=== PATIENT | female | born 1990 | race Caucasian/White ===

== ENCOUNTER 2023-05-08 22:21 | Outpatient (REF) | payer BC, OTHER, SELFPAY ==
[2023-05-13 08:11] LABS: Age Gdln ACOG Testing Note (.); HPV Aptima Negative (Negative); IGP, Aptima HPV, rfx 16/18,45 Note (.)
== END 2023-05-08 22:22 | disposition home or self-care (01) ==
LOC: LAB 22:21
PROVIDERS: Visit Provider Physician Assistant
DX: Z01.419 Encounter for gynecological examination (general) (routine) without abnormal findings (principal)
CPT/HCPCS: 87624; G0145

== ENCOUNTER 2023-06-29 07:10 | Outpatient (OUT) | payer OTHER, SELFPAY ==
[2023-06-29 07:52] LABS: Alanine Aminotransferase 21 U/L (14-59); Albumin Globulin Ratio 1.2; Albumin Level 3.8 g/dL (3.4-5.0); Alkaline Phosphatase 53 U/L (46-116); Aspartate Amino Transferase 8 U/L (15-37); Bilirubin Direct 0.1 mg/dL (0.0-0.2); Bilirubin Total 0.5 mg/dL (0.2-1.0); Globulin 3.3 g/dL; Total Protein 7.1 g/dL (6.4-8.2)
--- OUTSIDE RECORDS SUMMARY | 2023-06-29 10:24 | XMS_ITS | CCD ---
Author Name Unknown Address [address] [place] [address] Organization [facility] Care Team Providers Care Chemical Economist Name Role Phone LOTTIE, DR RIGGS Attending Unavailable LOTTIE, DR RIGGS Consulting Unavailable JERSEY, DR JUAREZ Primary Care Unavailable LOTTIE, DR RIGGS Admitting Unavailable LOTTIE, DR RIGGS Attending Unavailable JERSEY, DR JUAREZ Primary Care Unavailable LOTTIE, DR RIGGS Consulting Unavailable LOTTIE, DR RIGGS Admitting Unavailable JERSEY, DR JUAREZ Primary Care Unavailable MISC, DR SANTOS Attending Unavailable MISC, DR SANTOS Consulting Unavailable MISC, DR SANTOS Admitting Unavailable RUIZ LESTER Attending Unavailable RUIZ LESTER Consulting Unavailable RUIZ LESTER Admitting Unavailable JERSEY, DR JUAREZ Primary Care Unavailable LOTTIE, DR RIGGS Attending Unavailable JERSEY, DR JUAREZ Primary Care Unavailable LOTTIE, DR RIGGS Admitting Unavailable JERSEY, DR JUAREZ Primary Care Unavailable MISC, DR SANTOS Admitting Unavailable MISC, DR SANTOS Attending Unavailable ATUL JACOB Primary Care Unavailable BELINDA CARD Referring Unavailable Allergies Allergy Classification Reported Allergen(s) Allergy Type Date of Onset Reaction(s) Facility (2 sources) Amoxicillin Drug Allergy 1990 [facility] (1 source) Penicillins Drug allergy (disorder) 12-04-2016 [facility] Problems Active Problems Problem Classification Problem Date Documented Date Episodic/Chronic Immunizations and screening for infectious disease (1 source) Encounter for screening for human papillomavirus (HPV); Translations: [ENC SCREENING HUMAN PAPILLOMAVIRUS] Onset: 04-29-2022 Episodic Nausea and vomiting (4 sources) Nausea with vomiting, unspecified; Translations: [NAUSEA WITH VOMITING UNSPECIFIED] Onset: 02-23-2022 Episodic Other screening for suspected conditions (not mental disorders or infectious disease) (4 sources) Encounter for screening for malignant neoplasm of cervix; Translations: [ENC SCREENING MALIG NEOPLASM CERV] Onset: 04-27-2022 Episodic Thyroid disorders (2 sources) Thyrotoxicosis, unspecified without thyrotoxic crisis or storm; Translations: [Thyrotoxicosis, unspecified without thyrotoxic crisis or storm] Onset: 02-16-2023 Chronic Unclassified (3 sources) CONTACT W/AND (SUSP) EXPOS COVID-19; Translations: [CONTACT W/AND (SUSP) EXPOS COVID-19] Onset: 07-29-2021 Past or Other Problems Problem Classification Problem Date Documented Da te Episodic/Chronic Other nutritional; endocrine; and metabolic disorders (4 sources) Abnormal weight loss; Translations: [ABNORMAL WEIGHT LOSS] Onset: 01-03-2022 Episodic Other upper respiratory infections (1 source) Acute upper respiratory infection, unspecified; Translations: [ACUTE UP RESPIRATORY INFECTION UNS] Onset: 07-29-2021 Episodic Unclassified (1 source) CONTACT W/AND (SUSP) EXPOS COVID-19; Translations: [CONTACT W/AND (SUSP) EXPOS COVID-19] Onset: 07-28-2021 Results Test Name Value Interpretation Reference Range Facility Ferritinon 02-17-2023 Ferritin [Mass/Vol] 32 ng/mL Normal 13-150 [facility] Comment on above: Performed By: #### L IPR, GLYHGB, FT3, FERI, FT4 #### [facility] [address] [place] [address] [id number] International Trade Analyst: Alcon Farfan MD #### CDP, TSH #### [facility] [address] [place] [address] International Trade Analyst: Chace Leon MD Hemoglobin A1Con 02-17-2023 Glucose [Mass/Vol] 100 mg/dL Normal [facility] Comment on above: Result Comment: The ADA and AACC recommend providing the estimated average glucose result to permit better patient understanding of their HBA1c result. Performed By: #### L IPR, GLYHGB, FT3, FERI, FT4 #### [facility] [place], [place] [phone] International Trade Analyst: Alcon Farfan MD #### CDP, TSH #### [facility] [address] [place], [place] [phone] International Trade Analyst: Chace Leon MD HbA1c (Bld) [Mass fraction] 5.1 % Normal 4.0-6.0 [facility] Comment on above: Performed By: #### L IPR, GLYHGB, FT3, FERI, FT4 #### [address] [address] International Trade Analyst: Alcon Farfan MD #### CDP, TSH #### [address] [place] [phone] International Trade Analyst: Chace Leon MD T3, Freeon 4 Free T3 [Mass/Vol] 2.90 pg/mL Normal 2.02-4.43 [facility] Comment on above: Performed By: #### L IPR, GLYHGB, FT3, FERI, FT4 #### [address] [address] International Trade Analyst: Alcon Farfan MD #### CDP, TSH #### [address] [place] [phone] International Trade Analyst: Chace Leon MD CBC with Diffon 0 Abs. Basophil 0.05 k/uL Normal 0.00-0.20 [facility] Comment on above: Performed By: #### L IPR, GLYHGB, FT3, FERI, FT4 #### [address] [phone] International Trade Analyst: Alcon Farfan MD #### CDP, TSH #### [address] [place] [address] International Trade Analyst: Chace Leon MD Abs.Imm.Granulocyte <0.03 Normal 0.00-0.30 [facility] Comment on above: Performed By: #### L IPR, GLYHGB, FT3, FERI, FT4 #### [address] [address] International Trade Analyst: Alcon Farfan MD #### CDP, TSH #### [address] [place] [address] International Trade Analyst: Chace Leon MD Abs.Neutrophil (Seg) 3.53 k/uL Normal 1.50-8.10 [facility] Comment on above: Performed By: #### L IPR, GLYHGB, FT3, FERI, FT4 #### [address] [address] International Trade Analyst: Alcon Farfan MD #### CDP, TSH #### [address] [place] [phone] International Trade Analyst: Chace Leon MD Basophils/100 WBC (Bld) 1 % Normal 0-2 [facility] Comment on above: Performed By: #### L IPR, GLYHGB, FT3, FERI, FT4 #### [address] [address] International Trade Analyst: Alcon Farfan MD #### CDP, TSH #### [address] [place] [phone] International Trade Analyst: Chace Leon MD Eosinophils (Bld) [#/Vol] 0.14 10*3/uL Normal 0.00-0.4 4 [facility] Comment on above: Performed By: #### L IPR, GLYHGB, FT3, FERI, FT4 #### [address] [address] International Trade Analyst: Alcon Farfan MD #### CDP, TSH #### [address] [place] [phone] International Trade Analyst: Chace Leon MD Eosinophils/100 WBC (Bld) 2 % Normal 1-4 [facility] Comment on above: Performed By: #### L IPR, GLYHGB, FT3, FERI, FT4 #### [address] [address] International Trade Analyst: Alcon Farfan MD #### CDP, TSH #### [address] [place] [phone] International Trade Analyst: Chace Leon MD Erythrocyte distribution width (RBC) [Ratio] 12.9 % Normal 11.8-14.4 [facility] Comment on above: Performed By: #### L IPR, GLYHGB, FT3, FERI, FT4 #### [address] [address] International Trade Analyst: Alcon Farfan MD #### CDP, TSH #### [address] [place] [phone] International Trade Analyst: Chace Leon MD Hematocrit (Bld) [Volume fraction] 44.7 % Normal 36.3-47.1 [facility] Comment on above: Performed By: #### L IPR, GLYHGB, FT3, FERI, FT4 #### [address] [phone] International Trade Analyst: Alcon Farfan MD #### CDP, TSH #### [address] [place] [phone] International Trade Analyst: Chace Leon MD Hemoglobin (Bld) [Mass/Vol] 14.6 g/dL Normal 11.9-15.1 [facility] Comment on above: Performed By: #### L IPR, GLYHGB, FT3, FERI, FT4 #### [address] [phone] International Trade Analyst: Alcon Farfan MD #### CDP, TSH #### [address] [place] [phone] International Trade Analyst: Chace Leon MD Immature granulocytes/100 WBC (Bld) 0 % Normal 0 [facility] Comment on above: Performed By: #### L IPR, GLYHGB, FT3, FERI, FT4 #### [address] [phone] International Trade Analyst: Alcon Farfan MD #### CDP, TSH #### [address] [place] [phone] International Trade Analyst: Chace Leon MD Lymphocytes (Bld) [#/Vol] 1.64 10*3/uL Normal 1.10-3.7 0 [facility] Comment on above: Performed By: #### L IPR, GLYHGB, FT3, FERI, FT4 #### [address] [phone] International Trade Analyst: Alcon Farfan MD #### CDP, TSH #### [address] [place] [phone] International Trade Analyst: Chace Leon MD Lymphocytes/100 WBC (Bld) 28 % Normal 24-43 [facility] Comment on above: Performed By: #### L IPR, GLYHGB, FT3, FERI, FT4 #### [address] [phone] International Trade Analyst: Aclon Farfan MD #### CDP, TSH #### [address] [place] [phone] International Trade Analyst: Chace Leon MD MCH (RBC) [Entitic mass] 29.3 pg Normal 25.2-33.5 [facility] Comment on above: Performed By: #### L IPR, GLYHGB, FT3, FERI, FT4 #### [address] [phone] International Trade Analyst: Alcon Farfan MD #### CDP, TSH #### [address] [place] [phone] International Trade Analyst: Chace Leon MD MCHC (RBC) [Mass/Vol] 32.7 g/dL Normal 28.4-34.8 [facility] Comment on above: Performed By: #### L IPR, GLYHGB, FT3, FERI, FT4 #### [address] [address] International Trade Analyst: Alcon Farfan MD #### CDP, TSH #### [address] [place] [phone] International Trade Analyst: Chace Leon MD MCV (RBC) [Entitic vol] 89.6 fL Normal 82.6-102.9 [facility] Comment on above: Performed By: #### L IPR, GLYHGB, FT3, FERI, FT4 #### [address] [address] International Trade Analyst: Alcon Farfan MD #### CDP, TSH #### [address] [place] [phone] International Trade Analyst: Chace Leon MD Monocytes (Bld) [#/Vol] 0.44 10*3/uL Normal 0.10-1.20 [facility] Comment on above: Performed By: #### L IPR, GLYHGB, FT3, FERI, FT4 #### [address] [phone] International Trade Analyst: Alcon Farfan MD #### CDP, TSH #### [address] [place] [phone] International Trade Analyst: Chace Leon MD Monocytes/100 WBC (Bld) 8 % Normal 3-12 [facility] Comment on above: Performed By: #### L IPR, GLYHGB, FT3, FERI, FT4 #### [address] [address] International Trade Analyst: Alcon Farfan MD #### CDP, TSH #### [address] [place], [place] [phone] International Trade Analyst: Chace Leon MD Neutrophil (Seg) 61 % Normal 36-65 [facility] Comment on above: Performed By: #### L IPR, GLYHGB, FT3, FERI, FT4 #### [address] [address] International Trade Analyst: Alcon Farfan MD #### CDP, TSH #### [address] [place] [phone] International Trade Analyst: Chace Leon MD NRBC Automated 0.0 per 100 WBC Normal 0.0 [facility] Comment on above: Performed By: #### L IPR, GLYHGB, FT3, FERI, FT4 #### [address] [address] International Trade Analyst: Alcon Farfan MD #### CDP, TSH #### [address] [place] [phone] International Trade Analyst: Chace Leon MD Platelet mean volume (Bld) [Entitic vol] 9.9 fL Normal 8.1-13.5 [facility] Comment on above: Performed By: #### L IPR, GLYHGB, FT3, FERI, FT4 #### [address] [address] International Trade Analyst: Alcon Farfan MD #### CDP, TSH #### [address] [place] [address] International Trade Analyst: Chace Leon MD Platelets (Bld) [#/Vol] 287 10*3/uL Normal 138-453 [facility] Comment on above: Performed By: #### L IPR, GLYHGB, FT3, FERI, FT4 #### [address] [address] International Trade Analyst: Alcon Farfan MD #### CDP, TSH #### [address] [place], [place] [phone] International Trade Analyst: Chace Leon MD RBC (Bld) [#/Vol] 4.99 10*6/uL Normal 3.95-5.11 [facility] Comment on above: Performed By: #### L IPR, GLYHGB, FT3, FERI, FT4 #### [address] [address] International Trade Analyst: Alcon Farfan MD #### CDP, TSH #### [address] [place] [phone] International Trade Analyst: Chace Leon MD WBC (Bld) [#/Vol] 5.8 10*3/uL Normal 3.5-11.3 [facility] Comment on above: Performed By: #### L IPR, GLYHGB, FT3, FERI, FT4 #### [address] [address] International Trade Analyst: Alcon Farfan MD #### CDP, TSH #### [address] [place] [phone] ( International Trade Analyst: Chace Leon MD Lipid Profileon 02-16-2023 Cholesterol [Mass/Vol] 149 mg/dL Normal <200 [facility] Comment on above: Result Comment: Cholesterol Guidelines: <200 Desirable 200-240 Borderline >240 Undesirable Performed By: #### L IPR, GLYHGB, FT3, FERI, FT4 #### [address] [address] International Trade Analyst: Alcon Farfan MD #### CDP, TSH #### [facility] [address] [place], [place] [phone] International Trade Analyst: Chace Leon MD Cholesterol in HDL [Mass/Vol] 42 mg/dL Normal >40 [facility] Comment on above: Result Comment: HDL Guidelines: <40 Undesirable 40-59 Borderline >59 Desirable Performed By: #### L IPR, GLYHGB, FT3, FERI, FT4 #### [address] [phone] International Trade Analyst: Alcon Farfan MD #### CDP, TSH #### [facility] [address] [place] [address] International Trade Analyst: Chace Leon MD Cholesterol in LDL [Mass/Vol] 80 mg/dL Normal 0-130 [facility] Comment on above: Result Comment: LDL Guidelines: <100 Desirable 100-129 Near to/above Desirable 130-159 Borderline >159 Undesirable Direct (measured) LDL and calculated LDL are not interchangeable tests. Performed By: #### L IPR, GLYHGB, FT3, FERI, FT4 #### [address] [phone] International Trade Analyst: Alcon Farfan MD #### CDP, TSH #### [facility] [address] [place] [address] International Trade Analyst: Chace Leon MD Cholesterol.total/Choleste rol in HDL [Mass ratio] 3.5 {ratio} Normal <5 [facility] Comment on above: Performed By: #### L IPR, GLYHGB, FT3, FERI, FT4 #### [place] [id number] [place], [place] [phone] International Trade Analyst: Alcon Farfan MD #### CDP, TSH #### [facility] [address] [place] [address] International Trade Analyst: Chace Leon MD Triglyceride [Mass/Vol] 134 mg/dL Normal <150 [facility] Comment on above: Result Comment: Triglyceride Guidelines: <150 Desirable 150-199 Borderline 200-499 High >499 Very high Based on AHA Guidelines for fasting triglyceride, April 2012. Performed By: #### L IPR, GLYHGB, FT3, FERI, FT4 #### [address] [phone] International Trade Analyst: Alcon Farfan MD #### CDP, TSH #### [address] [place] [phone] International Trade Analyst: Chace Leon MD Thyroid Stim. Horm.on 2022 Thyroid Stim. Horm. 3.89 uIU/mL Normal 0.30-5.00 [facility] Comment on above: Performed By: #### L IPR, GLYHGB, FT3, FERI, FT4 #### [address] [address] International Trade Analyst: Alcon Farfan MD #### CDP, TSH #### [address] [place] [address] International Trade Analyst: Chace Leon MD Thyroxine, Freeon 02-16-2023 Thyroxine, Free 1.0 ng/dL Normal 0.9-1.7 [facility] Comment on above: Performed By: #### L IPR, GLYHGB, FT3, FERI, FT4 #### [address] [address] International Trade Analyst: Alcon Farfan MD #### CDP, TSH #### [address] [place] [address] International Trade Analyst: Chace Leon MD PAP ACOG PANEL 2: 30 to 65on 05-06-2022 . . Normal [facility] Comment on above: Result Comment: Perf ormed at: WB Performed By: #### [id number] #### [facility] [address] [place] [address] Dr. Edwin Conklin Age Gdln ACOG Testing 30-65 Normal [facility] Comment on above: Performed By: #### 4 [id number] #### [facility] [address] [place] [address] Dr. Edwin Conklin DIAGNOSIS: Comment Normal [facility] Comment on above: Result Comment: NEGA TIVE FOR INTRAEPITHELIAL LESION OR MALIGNANCY. Performed at: WB Performed By: #### 4 [id number] #### [facility] [address] [place] [address] Dr. Edwin Conklin HPV Aptima Positive Abnormal Negative [facility] Comment on above: Result Comment: This nucleic acid amplification test detects fourteen high-risk HPV types (16,18,31,33,35,39,45,51,52,56,58,59,66,68) without differentiation. Performed at: =G Performed By: #### 4 [id number] #### [facility] [address] [place] [address] Dr. Edwin Conklin HPV Genotype 16 Negative Normal Negative [facility] Comment on above: Result Comment: Perf ormed at: =G Performed By: #### 4 [id number] #### [facility] [address] [place] [address] Dr. Edwin Conklin HPV Genotype 18,45 Negative Normal Negative [facility] Comment on above: Result Comment: Perf ormed at: =G Performed By: #### 4 [id number] #### [facility] [address] [place] [address] Dr. Edwin Conklin Methodology: Comment Normal [facility] Comment on above: Result Comment: This liquid based ThinPrep(R) pap test was screened with the use of an image guided system. Performed at: WB Performed By: #### 4 [id number] #### [facility] [address] [place] [address] Dr. Edwin Conklin Note: Comment Normal [facility] Comment on above: Result Comment: The Pap smear is a screening test designed to aid in the detection of premalignant and malignant conditions of the uterine cervix. It is not a diagnostic procedure and should not be used as the sole means of detecting cervical cancer. Both false-positive and false-negative reports do occur. . Performed at: WB Performed By: #### [id number] #### [facility] [address] [place] [address] Dr. Edwin Conklin Performed by: Comment Normal [facility] Comment on above: Result Comment: Karissa Alexander, Jackscrew Worker Performed at: WB Performed By: #### 4 [id number] #### [facility] [address] [place] [address] Dr. Edwin Conklin Specimen adequacy: Comment Normal [facility] Comment on above: Result Comment: Sati sfactory for evaluation. Endocervical and/or squamous metaplastic cells (endocervical component) are present. Performed at: WB Performed By: #### 4 [id number] #### [facility] [address] [place] [address] Dr. Edwin Conklin CBC AUTO DIFFon 02-23-2022 BASO # 0.1 103/ul Normal 0.0-0.1 [facility] Comment on above: Performed By: #### C BC #### [facility] [address] [place] [address] Dr. Edwin Conklin Basophils/100 WBC (Bld) 0.3 % Normal 0.2-2.0 [facility] Comment on above: Performed By: #### C BC #### [facility] [address] [place] [address] Dr. Edwin Conklin EO # 0.1 103/ul Normal 0.0-0.7 [facility] Comment on above: Performed By: #### C BC #### [facility] [address] [place] [address] Dr. Edwin Conklin Eosinophils/100 WBC (Bld) 0.4 % Critically low 0.9-7. 0 [facility] Comment on above: Performed By: #### C BC #### [facility] [address] [place] [address] Dr. Edwin Conklin Erythrocyte distribution width (RBC) [Ratio] 13.2 % Normal 11.0-15.0 [facility] Comment on above: Performed By: #### C BC #### [facility] [address] [place] [address] [address] Edwin Conklin Hematocrit (Bld) [Volume fraction] 45.2 % Normal 36.0-48.0 [facility] Comment on above: Performed By: #### C BC #### [facility] [address] [place] [address] Dr. Edwin Conklin Hemoglobin (Bld) [Mass/Vol] 14.8 g/dL Normal 12.0-16.0 [facility] Comment on above: Performed By: #### C BC #### [facility] [address] [place] [address] Dr. Edwin Conklin IG # 0.11 10e3/ul Critically high 0.00-0.03 [facility] Comment on above: Performed By: #### C BC #### [facility] [address] [place] [address] Dr. Edwin Conklin IG % 0.5 % Normal 0.0-0.5 [facility] Comment on above: Performed By: #### C BC #### [facility] [address] [place] [address] Dr. Edwin Conklin LYMPH # 1.3 103/ul Normal 1.2-3.8 [facility] Comment on above: Performed By: #### C BC #### [facility] [address] [place] [address] Dr. Edwin Conklin Lymphocytes/100 WBC (Bld) 6.0 % Critically low 20.5-6 0.0 [facility] Comment on above: Performed By: #### C BC #### [facility] [address] [place] [address] Dr. Edwin Conklin MANUAL DIFF REQ NO Normal [facility] Comment on above: Performed By: #### C BC #### [facility] [address] [place] [address] Dr. Edwin Conklin MCH (RBC) [Entitic mass] 28.9 pg Normal 26.7-34.0 [facility] Comment on above: Performed By: #### C BC #### [facility] [address] [place] [address] Dr. Edwin Conklin MCHC (RBC) [Mass/Vol] 32.7 g/dL Normal 29.9-35.2 [facility] Comment on above: Performed By: #### C BC #### [facility] [address] [place] [address] Dr. Edwin Conklin MCV (RBC) [Entitic vol] 88.3 fL Normal 81.0-99.0 [facility] Comment on above: Performed By: #### C BC #### [facility] [address] [place] [address] [address] Edwin Conklin MONO # 1.1 103/ul Critically high 0.3-0.8 [facility] Comment on above: Performed By: #### C BC #### [facility] [address] [place] [address] Dr. Edwin Conklin Monocytes/100 WBC (Bld) 5.2 % Normal 1.7-12.0 [facility] Comment on above: Performed By: #### C BC #### [facility] [address] [place] [address] Dr. Edwin Conklin NEUT # 18.8 103/ul Critically high 1.4-6.5 [facility] Comment on above: Performed By: #### C BC #### [facility] [address] [place] [address] Dr. Edwin Conklin Neutrophils/100 WBC (Bld) 87.6 % Critically high 43.0- 75.0 [facility] Comment on above: Performed By: #### C BC #### [facility] [address] [place] [address] Dr. Edwin Conklin Platelet mean volume (Bld) [Entitic vol] 9.4 fL Critically low 9.5-13.5 [facility] Comment on above: Performed By: #### C BC #### [facility] [address] [place] [address] Dr. Edwin Conklin PLT 326 103/ul Normal 150-450 [facility] Comment on above: Performed By: #### C BC #### [facility] [address] [place] [address] Dr. Edwin Conklin RBC 5.12 106/ul Normal 4.20-5.40 [facility] Comment on above: Performed By: #### C BC #### [facility] [address] [place] [address] Dr. Edwin Conklin WBC 21.4 103/ul Critically high 4.0-11.0 [facility] Comment on above: Performed By: #### C BC #### [facility] [address] [place] [address] Dr. Edwin Conklin PREG HCG QUALon 02-23-2022 , QUAL Negative Normal NEGATIVE [facility] Comment on above: Performed By: #### P REG #### [facility] [address] [place] [address] Dr. Edwin Conklin PROF CHEM 8 (BAS METB)on Anion gap [Moles/Vol] 14.9 mmol/L Normal [facility] Comment on above: Performed By: #### B MP #### [facility] [address] [place] [address] Dr. Edwin Conklin Calcium [Mass/Vol] 8.5 mg/dL Normal 8.5-10.1 [facility] Comment on above: Performed By: #### B MP #### [facility] [address] [place] [address] Dr. Edwin Conklin Chloride [Moles/Vol] 102 mmol/L Normal 98-107 [facility] Comment on above: Performed By: #### B MP #### [facility] [address] [place] [address] Dr. Edwin Conklin CO2 [Moles/Vol] 23.8 mmol/L Normal 21.0-32.0 [facility] Comment on above: Performed By: #### B MP #### [facility] [address] [place] [address] Dr. Edwin Conklin Creatinine [Mass/Vol] 0.82 mg/dL Normal 0.55-1.02 [facility] Comment on above: Performed By: #### B MP #### [facility] [address] [place] [address] Dr. Edwin Conklin EGFR-AF [place] >60 Normal >=60 [facility] Comment on above: Performed By: #### B MP #### [facility] [address] [place] [address] [address] Edwin Conlkin EGFR-NON [employer] [place] >60 Normal >=60 [facility] Comment on above: Performed By: #### B MP #### [facility] [address] [address] [address] Edwin Conklin Glucose [Mass/Vol] 107 mg/dL Critically high 74-106 [facility] Comment on above: Performed By: #### B MP #### [facility] [address] [address] [address] Edwin Conklin Potassium [Moles/Vol] 3.7 mmol/L Normal 3.5-5.1 [facility] Comment on above: Performed By: #### B MP #### [facility] [address] [address] [address] Edwin Conklin Sodium [Moles/Vol] 137 mmol/L Normal 136-145 [facility] Comment on above: Performed By: #### B MP #### [facility] [address] [address] [address] Edwin Conklin Urea nitrogen [Mass/Vol] 18.0 mg/dL Normal 7.0-18.0 [facility] Comment on above: Performed By: #### B MP #### [facility] [address] [address] [address] Edwin Conklin Urea nitrogen/Creatinine [Mass ratio] 22.0 mg/mg Normal [facility] Comment on above: Performed By: #### B MP #### [facility] [address] [address] [address] Edwin Conklin DHEA SERUMon 01-08-2022 Dehydroepiandrosterone (DHEA) 140 ng/dL Normal 31-701 [facility] Comment on above: Result Comment: Age 1 - 5 years 0 - 67 6 - 7 years 0 - 110 8 - 10 years 0 - 185 11 - 12 years 0 - 201 13 - 14 years 0 - 318 15 - 16 years 39 - 481 17 - 19 years 40 - 491 >19 years 31 - 701 Performed By: #### D BARBIE. #### [facility] [address] [address] [address] Edwin Conklin TESTOSTERONE, FREE,DIRECT, T OTALon 01-05-2022 Free Testosterone(Direct) 1.3 pg/mL Normal 0.0-4.2 [facility] Comment on above: Result Comment: Perf ormed at: BN Performed By: #### T ESTFRD #### [facility] [address] [address] [address] Edwin Conklin Testosterone [Mass/Vol] 4 ng/dL Critically low 8-60 [facility] Comment on above: Result Comment: Perf ormed at: CB Performed By: #### T ESTFRD #### [facility] [address] [place] [address] Dr. Edwin Conklin DHEA-SULFATEon 01-04-2022 DHEA-Sulfate 134.0 ug/dL Normal 84.8-378.0 [facility] Comment on above: Performed By: #### C BC #### [facility] [address] [place] [address] Dr. Edwin Conklin FSHon 01-04-2022 FSH 4.0 mIU/mL Normal [facility] Comment on above: Result Comment: Adul t Female: Follicular phase 3.5 - 12.5 Ovulation phase 4.7 - 21.5 Luteal phase 1.7 - 7.7 Postmenopausal 25.8 - 134.8 Performed By: #### [facility] #### [facility] [address] [place] [address] Dr. Edwin Conklin LUTEINIZING HORMONE (LH)on 0 01-04-2022 LH 3.8 mIU/mL Normal [facility] Comment on above: Result Comment: Adul t Female: Follicular phase 2.4 - 12.6 Ovulation phase 14.0 - 95.6 Luteal phase 1.0 - 11.4 Postmenopausal 7.7 - 58.5 Performed By: #### C BC #### [facility] [address] [place] [address] Dr. Edwin Conklin CBC AUTO DIFFon 01-03-2022 BASO # 0.0 103/ul Normal 0.0-0.1 [facility] Comment on above: Performed By: #### C BC #### [facility] [address] [place] [address] Dr. Edwin Conklin Basophils/100 WBC (Bld) 0.8 % Normal 0.2-2.0 [facility] Comment on above: Performed By: #### C BC #### [facility] [address] [place] [address] Dr. Edwin Conklin EO # 0.2 103/ul Normal 0.0-0.7 [facility] Comment on above: Performed By: #### C BC #### [facility] [address] [place] [address] Dr. Edwin Conklin Eosinophils/100 WBC (Bld) 3.9 % Normal 0.9-7.0 [facility] Comment on above: Performed By: #### C BC #### [facility] [address] [place] [address] Dr. Edwin Conklin Erythrocyte distribution width (RBC) [Ratio] 12.7 % Normal 11.0-15.0 [facility] Comment on above: Performed By: #### C BC #### [facility] [address] [place] [address] Dr. Edwin Conklin Hematocrit (Bld) [Volume fraction] 39.7 % Normal 36.0-48.0 [facility] Comment on above: Performed By: #### C BC #### [facility] [address] [place] [address] Dr. Edwin Conklin Hemoglobin (Bld) [Mass/Vol] 12.8 g/dL Normal 12.0-16.0 [facility] Comment on above: Performed By: #### C BC #### [facility] [address] [place] [address] Dr. Edwin Conklin IG # 0.00 10e3/ul Normal 0.00-0.03 [facility] Comment on above: Performed By: #### C BC #### [facility] [address] [place] [address] Dr. Edwin Conklin IG % 0.0 % Normal 0.0-0.5 [facility] Comment on above: Performed By: #### C BC #### [facility] [address] [place] [address] Dr. Edwin Conklin LYMPH # 1.9 103/ul Normal 1.2-3.8 [facility] Comment on above: Performed By: #### C BC #### [facility] [address] [place] [address] Dr. Edwin Conklin Lymphocytes/100 WBC (Bld) 37.4 % Normal 20.5-60.0 [facility] Comment on above: Performed By: #### C BC #### [facility] [address] [place] [address] Dr. Edwin Conklin MANUAL DIFF REQ NO Normal [facility] Comment on above: Performed By: #### C BC #### [facility] [address] [place] [address] Dr. Edwin Conklin MCH (RBC) [Entitic mass] 28.9 pg Normal 26.7-34.0 [facility] Comment on above: Performed By: #### C BC #### [facility] [address] [place] [address] Dr. Edwin Conklin MCHC (RBC) [Mass/Vol] 32.2 g/dL Normal 29.9-35.2 [facility] Comment on above: Performed By: #### C BC #### [facility] [address] [place] [address] Dr. Edwin Conklin MCV (RBC) [Entitic vol] 89.6 fL Normal 81.0-99.0 [facility] Comment on above: Performed By: #### C BC #### [facility] [address] [place] [address] Dr. Edwin Conklin MONO # 0.4 103/ul Normal 0.3-0.8 [facility] Comment on above: Performed By: #### C BC #### [facility] [address] [place] [address] Dr. Edwin Conklin Monocytes/100 WBC (Bld) 7.8 % Normal 1.7-12.0 [facility] Comment on above: Performed By: #### C BC #### [facility] [address] [address] [address] Edwin Conklin NEUT # 2.6 103/ul Normal 1.4-6.5 [facility] Comment on above: Performed By: #### C BC #### [facility] [address] [address] [address] Edwin Conklin Neutrophils/100 WBC (Bld) 50.1 % Normal 43.0-75.0 [facility] Comment on above: Performed By: #### C BC #### [facility] [address] [address] [address] Edwin Conklin Platelet mean volume (Bld) [Entitic vol] 9.1 fL Critically low 9.5-13.5 [facility] Comment on above: Performed By: #### C BC #### [facility] [address] [place] [address] Dr. Edwin Conklin PLT 293 103/ul Normal 150-450 [facility] Comment on above: Performed By: #### C BC #### [facility] [address] [address] [address] Edwin Conklin RBC 4.43 106/ul Normal 4.20-5.40 [facility] Comment on above: Performed By: #### C BC #### [facility] [address] [place] [address] Dr. Edwin Conklin WBC 5.1 103/ul Normal 4.0-11.0 [facility] Comment on above: Performed By: #### C BC #### [facility] [address] [place] [address] Dr. Edwin Conklin GLYCOHEMOGLOBIN A1Con 2021 ADA RECOMMENDATION SEE BELOW Normal [facility] Comment on above: Result Comment: ADA RECOMMENDED LIMIT 4.0 - 6.0 ADA THERAPEUTIC TARGET < 7.0 ACTION SUGGESTED > 7.0 Performed By: #### A 1C #### [facility] [address] [place] [address] Dr. Edwin Conklin Glucose [Mass/Vol] 103 mg/dL Normal [facility] Comment on above: Performed By: #### A 1C #### [facility] [address] [address] [address] Edwin Conklin HbA1c (Bld) [Mass fraction] 5.2 % Normal 4.5-6.2 [facility] Comment on above: Performed By: #### A 1C #### [facility] [address] [place] [address] Dr. Edwin Conklin TSHon 01-03-2022 TSH 3.882 uIU/mL Critically high 0.358-3.740 [facility] Comment on above: Performed By: #### T SH #### [facility] [address] [place] [address] Dr. Edwin Conklin [facility]10 SARS-CoV-2 (COVID-19) RNA YAHIR+probe Ql (Unsp spec) Not detected Normal NOT DETECTED [facility] Comment on above: Result Comment: This test is not yet approved or cleared by the [place] FDA. When there are no FDA-approved or cleared tests available, and other criteria are met, FDA can make tests available under an emergency access mechanism called an Emergency Use Authorization (EUA). The EUA for this test is supported by the [place] of Health and Human Service's (HHS's) declaration that circumstances exist to justify the emergency use of in vitro diagnostics for the detection and/or diagnosis of the virus that causes COVID-19. This EUA will remain in effect (meaning this test can be used) for the duration of the COVID-19 declaration justifying emergency of IVDs, unless it is terminated or revoked by FDA (after which the test may no longer be used). When diagnostic testing is negative, the possibility of a false negative should be considered in the context of a patient's recent exposures and the presence of clinical signs and symptoms consistent with SARS-CoV-2. Performed By: #### C VDTBH #### [facility] [address] [place] [address] Dr. 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 She is lactating. Prema reports that milk production is suboptimal for the baby based on the technical healthcare consultant assessment. She had normal TFTs in Jul 2017 with positive TG AB and negative TPO AB In November 2017 TSH 0.852, FT4 0.76 02/19/2018 TSH 2.28, FT4 0.77 She complains of feeling tired, generalized body aches, and difficulty losing weight Lifestyle is quite sedentary. She does not follow any special diet. She reports having a thyroid US last year that reportedly showed small thyroid nodules. Neck pressure symptoms. NO H/O exposure to ionizing radiation to the head and neck. NO H/O Thyroid cancer in one or more first degree relatives. NO H/O Prior Thyroid surgery. NO Review of Systems: GENERAL: Weight: gained some weight (as above), Energy: reduced; Mood: good, Sleep: Normal sleep pattern, Temp. Intolerance: None Diaphoresis: Not significant Memory: good Thyroid Pain: no, Mass Effect: No, change in Voice, difficulty swallowing and local pressure CV: No chest pain, dyspnea, orthopnea, cynosis, pedel edema Resp: No cough, hemoptysis, asthma, recent chest infection, wheezing GI: No blood in stool, pain with BM, tarry stool, persistent diarrhea or constipation Gyne: 3 months . 4th child. She has a Copper IUD for contraception Eyes: No, Dryness, Itching, tearing and diplopia Skin: Negative M/S: negative Neuro: negative History reviewed. No pertinent past medical history. Social History: Social History Socioeconomic History Marital status: Single Spouse name: Not on file Number of children: Not on file Years of education: Not on file Highest education level: Not on file Social Needs Financial resource strain: Not on file Food insecurity - worry: Not on file Food insecurity - inability: Not on file Transportation needs - medical: Not on file Transportation needs - non-medical: Not on file Occupational History Not on file Tobacco Use Smoking status: Not on file Substance and Sexual Activity Alcohol use: Not on file Drug use: Not on file Sexual activity: Not on file Other Topics Concerns: Not on file Social History Narrative Not on file FAMILY HISTORY Problem Relation Age of Onset - Thyroid Maternal Grandmother - Thyroid Paternal Grandmother No family history of thyroid cancer or other neuroendocrine tumors. Current Outpatient Medications: Wnzvvxji-Cl-Cvy-Fe- FA ( VITAMIN) tab Take 1 tablet by mouth once daily. No current facility-administer ed medications for this visit. Physical Exam BP 108/74 (BP Site: Left Arm, BP Position: Sitting, BP Cuff Size: Regular Adult) Pulse 60 Wt 95.3 kg (210 lb) BMI 39.68 kg/m? Body mass index is 39.68 kg/m?. APPEARANCE: Well appearing, alert, in no acute distress, well-hydrated, well nourished. EYES extra occular movements normal, no thyroid eye signs NECK Supple, no adenopathy. THYROID No goiter. 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 Plan: TSH BLD, T4 FREE . Repeat annually if within normal No thyroid treatment necessary at this time. (E66.09, Z68.39) Class 2 obesity due to excess calories without serious comorbidity with body mass index (BMI) of 39.0 to 39.9 in adult Comment: Multifactorial Plan: Counseled patient about diet and exercise strategies to loose weight. I spent 25 minutes in the visit, with more than 50% of the total ozll-hn-nxjr time of the visit in counseling / coordination of care. RTC in a year Milly Barros MD, PhD Referring Provider: SELF [200] Allergies As of Date: 10/01/2018 Noted Allergy Reaction PENICILLINS 02/20/2018 4 - Hives Date Reviewed: 10/01/2018 Reviewed by: Milly Barros - Fully Assessed Reason for Visit: Thyroid Problem [110] Primary Visit Diagnosis:Garrett 's disease [E06.3] Other Visit Diagnosis:Class 2 obesity due to excess calories without serious comorbidity with body mass index (BMI) of 39.0 to 39.9 in adult [E66.09, Z68.39] Order(s):TSH BLD [SQTSH] Order #: [id number] FUTURE T4 FREE/FREE THYROX [SQFT4] Order #: [id number] FUTURE Prescriptions as of 10/01/2018 Sig: VITAMIN,CALCIUM,MIN E* Take 1 tablet by mouth once d* Problem List As Of Date 10/01/2018 Noted Resolved Garrett's disease [E06.3] INVALID FOR* Disposition: Return in about 1 year (around 10/02/2019), or as needed. Follow-up and Disposition History Recorded Encounter Status:Closed by MILLY BARROS MD on 10/01/18 Normal [facility] Free T4on 10-01-2018 Free T4 [Mass/Vol] 1.6 ng/dL Normal 0.9-1.7 [facility] Comment on above: Performed By: #### T SH, FT4 #### [facility] [address] [place], [place] [address] PROGRESSon 10-01-2018 PROGRESS HNO ID: [id number] Author: Milly Barros Service: ? 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 She is lactating. Prema reports that milk production is suboptimal for the baby based on the technical healthcare consultant assessment. She had normal TFTs in Jul 2017 with positive TG AB and negative TPO AB In November 2017 TSH 0.852, FT4 0.76 02/19/2018 TSH 2.28, FT4 0.77 She complains of feeling tired, generalized body aches, and difficulty losing weight Lifestyle is quite sedentary. She does not follow any special diet. She reports having a thyroid US last year that reportedly showed small thyroid nodules. Neck pressure symptoms. NO H/O exposure to ionizing radiation to the head and neck. NO H/O Thyroid cancer in one or more first degree relatives. NO H/O Prior Thyroid surgery. NO Review of Systems: GENERAL: Weight: gained some weight (as above), Energy: reduced; Mood: good, Sleep: Normal sleep pattern, Temp. Intolerance: None Diaphoresis: Not significant Memory: good Thyroid Pain: no, Mass Effect: No, change in Voice, difficulty swallowing and local pressure CV: No chest pain, dyspnea, orthopnea, cynosis, pedel edema Resp: No cough, hemoptysis, asthma, recent chest infection, wheezing GI: No blood in stool, pain with BM, tarry stool, persistent diarrhea or constipation Gyne: 3 months . 4th child. She has a Copper IUD for contraception Eyes: No, Dryness, Itching, tearing and diplopia Skin: Negative M/S: negative Neuro: negative History reviewed. No pertinent past medical history. Social History: Social History Socioeconomic History Marital status: Single Spouse name: Not on file Number of children: Not on file Years of education: Not on file Highest education level: Not on file Social Needs Financial resource strain: Not on file Food insecurity - worry: Not on file Food insecurity - inability: Not on file Transportation needs - medical: Not on file Transportation needs - non-medical: Not on file Occupational History Not on file Tobacco Use Smoking status: Not on file Substance and Sexual Activity Alcohol use: Not on file Drug use: Not on file Sexual activity: Not on file Other Topics Concerns: Not on file Social History Narrative Not on file FAMILY HISTORY Problem Relation Age of Onset - Thyroid Maternal Grandmother - Thyroid Paternal Grandmother No family history of thyroid cancer or other neuroendocrine tumors. Current Outpatient Medications: Dcfefbcy-Fe-Rxq-Fe- FA ( VITAMIN) tab Take 1 tablet by mouth once daily. No current facility-administer ed medications for this visit. Physical Exam BP 108/74 (BP Site: Left Arm, BP Position: Sitting, BP Cuff Size: Regular Adult) Pulse 60 Wt 95.3 kg (210 lb) BMI 39.68 kg/m? Body mass index is 39.68 kg/m?. APPEARANCE: Well appearing, alert, in no acute distress, well-hydrated, well nourished. EYES extra occular movements normal, no thyroid eye signs NECK Supple, no adenopathy. THYROID No goiter. 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 Plan: TSH BLD, T4 FREE . Repeat annually if within normal No thyroid treatment necessary at this time. (E66.09, Z68.39) Class 2 obesity due to excess calories without serious comorbidity with body mass index (BMI) of 39.0 to 39.9 in adult Comment: Multifactorial Plan: Counseled patient about diet and exercise strategies to loose weight. I spent 25 minutes in the visit, with more than 50% of the total dhav-yd-fbov time of the visit in counseling / coordination of care. RTC in a year Milly Barros MD, PhD Normal [facility] TSHon 10-01-2018 TSH Qn 0.046 uU/mL Low 0.400-5.500 [facility] Comment on above: Result Comment: If t he patient is , TSH reference range varies by gestational period: First Trimester 0.100-2.500 uU/mL Second Trimester 0.200-3.000 uU/mL Third Trimester 0.300-3.000 uU/mL References: 1. De Maryann L, Franchesca M, Kingsley EK, et al. Management of Thyroid Dysfunction during and : An Endocrine Society Clinical Practice Guideline. J Clin Endocrinol Metab, 2012:97:1658-5255. 2. Juan M DE LUNA. Overview of thyroid disease in . UpToDate. 2016. Accessed on December 25, 2015. Performed By: #### T SH, FT4 #### [facility] [address] [place], [place] [address] Encounters Encounter Date Encounter Type Care Provider Facility Start: 02-16-2023 End: 02-17-2023 ambulatory [facility] Start: 04-27-2022 End: 04-27-[address] ONEIL TAFOYA Facility:[facility] Start: 03-06-[address] LARRY Urena [facility]ity:[facility] Start: 02-23-2022 End: 02-23-2022 ambulatory RUIZ LESTER Facility:[facility] Start: 01-20-[address] ONEIL TAFOYA Facility :[facility] Start: 01-03-2022 End: 01-04-[address] ONEIL TAFOYA Facility:[facility] Start: 07-28-2021 End: 07-28-[address] LARRY PUTNAM Facility:[facility] Payers Date Payer Category Payer Unknown [id number] 1990 Unknown [id number] 2.16.84 [id number] 1990 Unknown [id number] 2.16.84 [id number] 1990 Unknown [id number] 2.16.84 [id number] 1990 Unknown [id number] 2.16.84 [id number] 1990 Unknown [id number] 2.16.84 [id number] 1990 Unknown [id number] 2.16.84 [id number] 1990 Unknown [id number] 2.16.8 [id number] 1959 Self-pay 1959 Unknown [id number] Summary Purpose Family History No Family History Records FoundNo Family History Records FoundNo Family History Records Found Advance Directives No Advanced Directives Records FoundNo Advanced Directives Records FoundNo Advanced Directives Records Found Additional Source Comments INFORMATION SOURCE (unrecogn ized section and content) DATE CREATED AUTHOR 04/14/2019 [facility] DATE CREATED AUTHOR AUTHOR'S ORGANIZ ATION 05/06/2022 [facility] DATE CREATED AUTHOR AUTHOR'S ORGANIZ ATION 02/18/2023 [facility] FOR RECORDS PERTAINING TO PATIENTS WHO ARE OR HAVE BEEN ENROLLED IN A CHEMICAL DEPENDENCY/SUBSTANCEABUSE PROGRAM, SOME INFORMATION MAY BE OMITTED. This clinical summary was aggregated from multiple sources. Caution should be exercised in using it in the provision of clinical care. This summary normalizes information from multiple sources, and as a consequence, information in this document may materially change the coding, format and clinical context of patient data. In addition, data may be omitted in some cases. CLINICAL DECISIONS SHOULD BE BASED ON THE PRIMARY CLINICAL RECORDS. [facility]. provides no warranty or guarantee of the accuracy or completeness of information in this document.
== END 2023-06-29 07:11 | disposition home or self-care (01) ==
PROVIDERS: Visit Provider Physician Assistant
DX: Z79.899 Other long term (current) drug therapy (principal)
CPT/HCPCS: 36415; 80076

== ENCOUNTER 2023-08-08 10:03 | Outpatient (OUT) | payer OTHER, SELFPAY ==
--- OUTSIDE RECORDS SUMMARY | 2023-08-08 10:09 | XMS_ITS | CCD ---
Author Name Unknown Address [address] [facility] [address] [place] [id number] Organization [facility] Care Team Providers Care Pantograph I Engraver Name Role Phone LOTTIE, DR RIGGS Attending [...] Primary Care Unavailable BELINDA CARD Referring Unavailable ONEIL TAFOYA Attending Unavailable Allergies Allergy Classification Reported Allergen(s) Allergy Type Date of Onset Reaction(s) Facility (2 sources) Amoxicillin Drug Allergy 1990 [facility] (1 source) Penicillins Drug allergy (disorder) 12-04-2016 [facility] Problems Active Problems Problem Classification Problem [...] 02-17-2023 Ferritin [Mass/Vol] 32 ng/mL Normal 13-150 [facility] Comment on above: Performed By: #### L IPR, GLYHGB, FT3, FERI, FT4 #### [facility] [employer] [address] [place] [address] [phone] [employer] Operator: Alcon Farfan MD #### CDP, TSH #### [facility] [address] [place] [address] [employer] Operator: Chace Leon MD Hemoglobin A1Con 02-17-2023 Glucose [Mass/Vol] 100 mg/dL Normal [facility] Comment on above: Result Comment: The ADA and AACC recommend providing the estimated average glucose result to permit better patient understanding of their HBA1c result. Performed By: #### L IPR, GLYHGB, FT3, FERI, FT4 #### [facility] [employer] [address] [place] [address] [phone] [employer] Operator: Alcon Farfan MD #### CDP, TSH #### [facility] [address] [place], [place] [phone] [employer] Operator: Chace Leon MD HbA1c (Bld) [Mass fraction] 5.1 % Normal 4.0-6.0 [facility] Comment on above: Performed By: #### L IPR, GLYHGB, FT3, FERI, FT4 #### [address] [phone] [employer] Operator: Alcon Farfan MD #### CDP, TSH #### [facility] [address] [place] [phone] [employer] Operator: Chace Leon MD T3, Freeon 0 Free T3 [Mass/Vol] 2.90 pg/mL Normal 2.02-4.43 [facility] Comment on above: Performed By: #### L IPR, GLYHGB, FT3, FERI, FT4 #### [address] [address] [employer] Operator: Alcon Farfan MD #### CDP, TSH #### [facility] [address] [place] [address] [address]. [place] [phone] [employer] Operator: Chace Leon MD CBC with Diffon 5 Abs. Basophil 0.05 k/uL Normal 0.00-0.20 [facility] Comment on above: Performed By: #### L IPR, GLYHGB, FT3, FERI, FT4 #### [address] [address] [employer] Operator: Alcon Farfan MD #### CDP, TSH #### [facility] [address] [place] [address] [employer] Operator: Chace Leon MD Abs.Imm.Granulocyte <0.03 Normal 0.00-0.30 [facility] Comment on above: Performed By: #### L IPR, GLYHGB, FT3, FERI, FT4 #### [address] [address] [employer] Operator: Alcon Farfan MD #### CDP, TSH #### [address] [place] [phone] ( [employer] Operator: Chace Leon MD Abs.Neutrophil (Seg) 3.53 k/uL Normal 1.50-8.10 [facility] Comment on above: Performed By: #### L IPR, GLYHGB, FT3, FERI, FT4 #### [place] [address] [employer] Operator: Alcon Farfan MD #### CDP, TSH #### [address] [place] [phone] ( [employer] Operator: Chace Leon MD Basophils/100 WBC (Bld) 1 % Normal 0-2 [facility] Comment on above: Performed By: #### L IPR, GLYHGB, FT3, FERI, FT4 #### [place] [address] [employer] Operator: Alcon Farfan MD #### CDP, TSH #### [address] [place] [phone] [employer] Operator: Chace Leon MD Eosinophils (Bld) [#/Vol] 0.14 10*3/uL Normal 0.00-0.4 4 [facility] Comment on above: Performed By: #### L IPR, GLYHGB, FT3, FERI, FT4 #### [place] [address] [employer] Operator: Alcon Farfan MD #### CDP, TSH #### [address] [place] [phone] [employer] Operator: Chace Leon MD Eosinophils/100 WBC (Bld) 2 % Normal 1-4 [facility] Comment on above: Performed By: #### L IPR, GLYHGB, FT3, FERI, FT4 #### [address] [address] [employer] Operator: Alcon Farfan MD #### CDP, TSH #### [address] [place] [phone] [employer] Operator: Chace Leon MD Erythrocyte distribution width (RBC) [Ratio] 12.9 % Normal 11.8-14.4 [facility] Comment on above: Performed By: #### L IPR, GLYHGB, FT3, FERI, FT4 #### [address] [address] [employer] Operator: Alcon Farfan MD #### CDP, TSH #### [address] [place] [phone] [employer] Operator: Chace Leon MD Hematocrit (Bld) [Volume fraction] 44.7 % Normal 36.3-47.1 [facility] Comment on above: Performed By: #### L IPR, GLYHGB, FT3, FERI, FT4 #### [address] [address] [employer] Operator: Alcon Farfan MD #### CDP, TSH #### [address] [place] [phone] [employer] Operator: Chace Leon MD Hemoglobin (Bld) [Mass/Vol] 14.6 g/dL Normal 11.9-15.1 [facility] Comment on above: Performed By: #### L IPR, GLYHGB, FT3, FERI, FT4 #### [address] [address] [employer] Operator: Alcon Farfan MD #### CDP, TSH #### [address] [place], [place] [phone] [employer] Operator: Chace Leon MD Immature granulocytes/100 WBC (Bld) 0 % Normal 0 [facility] Comment on above: Performed By: #### L IPR, GLYHGB, FT3, FERI, FT4 #### [address] [address] [employer] Operator: Alcon Farfan MD #### CDP, TSH #### [address] [place], [place] [phone] [employer] Operator: Chace Leon MD Lymphocytes (Bld) [#/Vol] 1.64 10*3/uL Normal 1.10-3.7 0 [facility] Comment on above: Performed By: #### L IPR, GLYHGB, FT3, FERI, FT4 #### [address] [address] [employer] Operator: Alcon Farfan MD #### CDP, TSH #### [address] [place], [place] [phone] [employer] Operator: Chace Leon MD Lymphocytes/100 WBC (Bld) 28 % Normal 24-43 [facility] Comment on above: Performed By: #### L IPR, GLYHGB, FT3, FERI, FT4 #### [address] [address] [employer] Operator: Alcon Farfan MD #### CDP, TSH #### [address] [place], [place] [phone] [employer] Operator: Chace Leon MD MCH (RBC) [Entitic mass] 29.3 pg Normal 25.2-33.5 [facility] Comment on above: Performed By: #### L IPR, GLYHGB, FT3, FERI, FT4 #### [address] [address] [employer] Operator: Alcon Farfan MD #### CDP, TSH #### [address] [place], [place] [phone] [employer] Operator: Chace Leon MD MCHC (RBC) [Mass/Vol] 32.7 g/dL Normal 28.4-34.[address] [facility] Comment on above: Performed By: #### L IPR, GLYHGB, FT3, FERI, FT4 #### [address] [phone] [employer] Operator: Alcon Farfan MD #### CDP, TSH #### [address] [place] [phone] [employer] Operator: Chace Leon MD MCV (RBC) [Entitic vol] 89.6 fL Normal 82.6-102.9 [facility] Comment on above: Performed By: #### L IPR, GLYHGB, FT3, FERI, FT4 #### [address] [phone] [employer] Operator: Alcon Farfan MD #### CDP, TSH #### [address] [place] [phone] [employer] Operator: Chace Leon MD Monocytes (Bld) [#/Vol] 0.44 10*3/uL Normal 0.10-1.20 [facility] Comment on above: Performed By: #### L IPR, GLYHGB, FT3, FERI, FT4 #### [address] [address] [employer] Operator: Alcon Farfan MD #### CDP, TSH #### [address] [place] [address] [employer] Operator: Chace Leon MD Monocytes/100 WBC (Bld) 8 % Normal 3-12 [facility] Comment on above: Performed By: #### L IPR, GLYHGB, FT3, FERI, FT4 #### [address] [address] [employer] Operator: Alcon Farfan MD #### CDP, TSH #### [address] [place], [place] [phone] [employer] Operator: Chace Leon MD Neutrophil (Seg) 61 % Normal 36-65 [facility] Comment on above: Performed By: #### L IPR, GLYHGB, FT3, FERI, FT4 #### [address] [address] [employer] Operator: Alcon Farfan MD #### CDP, TSH #### [address] [place] [phone] [employer] Operator: Chace Leon MD NRBC Automated 0.0 per 100 WBC Normal 0.0 [facility] Comment on above: Performed By: #### L IPR, GLYHGB, FT3, FERI, FT4 #### [address] [address] [employer] Operator: Alcon Farfan MD #### CDP, TSH #### [address] [place], [place] [phone] [employer] Operator: Chace Leon MD Platelet mean volume (Bld) [Entitic vol] 9.9 fL Normal 8.1-13.5 [facility] Comment on above: Performed By: #### L IPR, GLYHGB, FT3, FERI, FT4 #### [address] [address] [employer] Operator: Alcon Farfan MD #### CDP, TSH #### [facility] [address] [place] [address] Dr. [place], [place] [phone] [employer] Operator: Chace Leon MD Platelets (Bld) [#/Vol] 287 10*3/uL Normal 138-453 [facility] Comment on above: Performed By: #### L IPR, GLYHGB, FT3, FERI, FT4 #### [address] [address] [employer] Operator: Alcon Farfan MD #### CDP, TSH #### [address] [place] [phone] [employer] Operator: Chace Leon MD RBC (Bld) [#/Vol] 4.99 10*6/uL Normal 3.95-5.11 [facility] Comment on above: Performed By: #### L IPR, GLYHGB, FT3, FERI, FT4 #### [address] [address] [employer] Operator: Alcon Farfan MD #### CDP, TSH #### [address] [place] [phone] [employer] Operator: Chace Leon MD WBC (Bld) [#/Vol] 5.8 10*3/uL Normal 3.5-11.3 [facility] Comment on above: Performed By: #### L IPR, GLYHGB, FT3, FERI, FT4 #### [address] [address] [employer] Operator: Alcon Farfan MD #### CDP, TSH #### [address] [place] [phone] [employer] Operator: Chace Leon MD Lipid Profileon 02-16-2023 Cholesterol [Mass/Vol] 149 mg/dL Normal <200 [facility] Comment on above: Result Comment: Cholesterol Guidelines: <200 Desirable 200-240 Borderline >240 Undesirable Performed By: #### L IPR, GLYHGB, FT3, FERI, FT4 #### [address] [address] [employer] Operator: Alcon Farfan MD #### CDP, TSH #### [facility] [address] [place] [address] [employer] Operator: Chace Leon MD Cholesterol in HDL [Mass/Vol] 42 mg/dL Normal >40 [facility] Comment on above: Result Comment: HDL Guidelines: <40 Undesirable 40-59 Borderline >59 Desirable Performed By: #### L IPR, GLYHGB, FT3, FERI, FT4 #### [address] [address] [employer] Operator: Alcon Farfan MD #### CDP, TSH #### [facility] [address] [place] [address] [place] [address] [employer] Operator: Chace Leon MD Cholesterol in LDL [Mass/Vol] 80 mg/dL Normal 0-130 [facility] Comment on above: Result Comment: LDL Guidelines: <100 Desirable 100-129 Near to/above Desirable 130-159 Borderline >159 Undesirable Direct (measured) LDL and calculated LDL are not interchangeable tests. Performed By: #### L IPR, GLYHGB, FT3, FERI, FT4 #### [address] [address] [employer] Operator: Alcon Farfan MD #### CDP, TSH #### [facility] [address] [place] [address] [place] [address] [employer] Operator: Chace Leon MD Cholesterol.total/Choleste rol in HDL [Mass ratio] 3.5 {ratio} Normal <5 [facility] Comment on above: Performed By: #### L IPR, GLYHGB, FT3, FERI, FT4 #### [address] [address] [employer] Operator: Alcon Farfan MD #### CDP, TSH #### [facility] [address] [place] [address] [employer] Operator: Chace Leon MD Triglyceride [Mass/Vol] 134 mg/dL Normal <150 [facility] Comment on above: Result Comment: Triglyceride Guidelines: <150 Desirable 150-199 Borderline 200-499 High >499 Very high Based on AHA Guidelines for fasting triglyceride, April 2012. Performed By: #### L IPR, GLYHGB, FT3, FERI, FT4 #### [address] [address] [employer] Operator: Alcon Farfan MD #### CDP, TSH #### [facility] [address] [place] [address] [place] [address] [employer] Operator: Chace Leon MD Thyroid Stim. Horm.on 2022 Thyroid Stim. Horm. 3.89 uIU/mL Normal 0.30-5.00 [facility] Comment on above: Performed By: #### L IPR, GLYHGB, FT3, FERI, FT4 #### [address] [address] [employer] Operator: Alcon Farfan MD #### CDP, TSH #### [address] [place] [place] [address] [employer] Operator: Chace Leon MD Thyroxine, Freeon 02-16-2023 Thyroxine, Free 1.0 ng/dL Normal 0.9-1.7 [facility] Comment on above: Performed By: #### L IPR, GLYHGB, FT3, FERI, FT4 #### [address] [address] [employer] Operator: Alcon Farfan MD #### CDP, TSH #### [facility] [address] [place] [address] [place] [address] [employer] Operator: Chace Leon MD PAP ACOG PANEL 2: 30 to 65on 05-06-2022 . . Normal [facility] Comment on above: Result Comment: Perf ormed at: WB Performed By: #### [id number] #### [facility] [address] [place] [address] [address] Edwin Conklin Age Gdln ACOG Testing 30-65 Normal [facility] Comment on above: Performed By: #### 4 [id number] #### [facility] [address] [place] [address] Dr. Edwin Conklin DIAGNOSIS: Comment Normal [facility] Comment on above: Result Comment: NEGA TIVE FOR INTRAEPITHELIAL LESION OR MALIGNANCY. Performed at: WB Performed By: #### [id number] #### [facility] [address] [place] [address] Dr. Edwin Conklin HPV Aptima Positive Abnormal Negative [facility] Comment on above: Result Comment: This nucleic acid amplification test detects fourteen high-risk HPV types (16,18,31,33,35,39,45,51,52,56,58,59,66,68) without differentiation. Performed at: =G Performed By: #### 4 [id number] #### [facility] [address] [place] [address] Dr. Edwin Conklin HPV Genotype 16 Negative Normal Negative [facility] Comment on above: Result Comment: Perf ormed at: =G Performed By: #### 4 [id number] #### [facility] [address] [place] [address] Dr. Edwin Conklin HPV Genotype 18,45 Negative Normal Negative [facility] Comment on above: Result Comment: Perf ormed at: =G Performed By: #### 4 [id number] #### [facility] [address] [place] [address] Dr. Edwin Conklin Methodology: Comment Normal [facility] Comment on above: Result Comment: This liquid based ThinPrep(R) pap test was screened with the use of an image guided system. Performed at: WB Performed By: #### 4 [id number] #### [facility] [address] [place] [address] Dr. Edwin Conklin Note: Comment Normal [facility] Comment on above: Result Comment: The Pap smear is a screening test designed to aid in the detection of premalignant and malignant conditions of the uterine cervix. It is not a diagnostic procedure and should not be used as the sole means of detecting cervical cancer. Both false-positive and false-negative reports do occur. . Performed at: WB Performed By: #### 4 [id number] #### [facility] [address] [place] [address] Dr. Edwin Conklin Performed by: Comment Normal [facility] Comment on above: Result Comment: Karissa Alexander, Educational Technician Performed at: WB Performed By: #### 4 [id number] #### [facility] [address] [place] [address] Dr. Edwin Conklin Specimen adequacy: Comment Normal [facility] Comment on above: Result Comment: Sati sfactory for evaluation. Endocervical and/or squamous metaplastic cells (endocervical component) are present. Performed at: WB Performed By: #### 4 [id number] #### [facility] [address] [place] [address] Dr. Edwin Conklin CBC AUTO DIFFon 02-23-2022 BASO # 0.1 103/ul Normal 0.0-0.1 [facility] Comment on above: Performed By: #### C BC #### [facility] [address] [place] [address] Dr. Edwin Conklin Basophils/100 WBC (Bld) 0.3 % Normal 0.2-2.0 [facility] Comment on above: Performed By: #### C BC #### [facility] [address] [place] [address] Dr. Edwin Conklin EO # 0.1 103/ul Normal 0.0-0.7 [facility] Comment on above: Performed By: #### C BC #### [facility] [address] [place] [address] Dr. Edwin Coknlin Eosinophils/100 WBC (Bld) 0.4 % Critically low 0.9-7. 0 [facility] Comment on above: Performed By: #### C BC #### [facility] [address] [place] [address] Dr. Edwin Conklin Erythrocyte distribution width (RBC) [Ratio] 13.2 % Normal 11.0-15.0 [facility] Comment on above: Performed By: #### C BC #### [facility] [address] [address] [address] Edwin Conklin Hematocrit (Bld) [Volume fraction] 45.2 % Normal 36.0-48.0 [facility] Comment on above: Performed By: #### C BC #### [facility] [address] [address] [address] Edwin Conklin Hemoglobin (Bld) [Mass/Vol] 14.8 g/dL Normal 12.0-16.0 [facility] Comment on above: Performed By: #### C BC #### [facility] [address] [place] [address] Dr. Edwin Conklin IG # 0.11 10e3/ul Critically high 0.00-0.03 [facility] Comment on above: Performed By: #### C BC #### [facility] [address] [place] [address] Dr. Edwin Conklin IG % 0.5 % Normal 0.0-0.5 [facility] Comment on above: Performed By: #### C BC #### [facility] [address] [place] [address] Dr. Edwin Conklin LYMPH # 1.3 103/ul Normal 1.2-3.8 [facility] Comment on above: Performed By: #### C BC #### [facility] [address] [place] [address] Dr. Edwin Conklin Lymphocytes/100 WBC (Bld) 6.0 % Critically low 20.5-6 0.0 [facility] Comment on above: Performed By: #### C BC #### [facility] [address] [place] [address] Dr. Edwin Conklin MANUAL DIFF REQ NO Normal [facility] Comment on above: Performed By: #### C BC #### [facility] [address] [place] [address] Dr. Edwin Conklin MCH (RBC) [Entitic mass] 28.9 pg Normal 26.7-34.0 [facility] Comment on above: Performed By: #### C BC #### [facility] [address] [address] [address] Edwin Conklin MCHC (RBC) [Mass/Vol] 32.7 g/dL Normal 29.9-35.2 [facility] Comment on above: Performed By: #### C BC #### [facility] [address] [address] [address] Edwin Conklin MCV (RBC) [Entitic vol] 88.3 fL Normal 81.0-99.0 [facility] Comment on above: Performed By: #### C BC #### [facility] [address] [address] [address] Edwin Conklin MONO # 1.1 103/ul Critically high 0.3-0.8 [facility] Comment on above: Performed By: #### C BC #### [facility] [address] [address] [address] Edwin Conklin Monocytes/100 WBC (Bld) 5.2 % Normal 1.7-12.0 [facility] Comment on above: Performed By: #### C BC #### [facility] [address] [address] [address] Edwin Conklin NEUT # 18.8 103/ul Critically high 1.4-6.5 [facility] Comment on above: Performed By: #### C BC #### [facility] [address] [place] [address] Dr. Edwin Conklin Neutrophils/100 WBC (Bld) 87.6 % Critically high 43.0- 75.0 [facility] Comment on above: Performed By: #### C BC #### [facility] [address] [address] [address] Edwin Conklin Platelet mean volume (Bld) [Entitic vol] 9.4 fL Critically low 9.5-13.5 [facility] Comment on above: Performed By: #### C BC #### [facility] [address] [place] [address] Dr. Edwin Conklin PLT 326 103/ul Normal 150-450 [facility] Comment on above: Performed By: #### C BC #### [facility] [address] [address] [address] Edwin Conklin RBC 5.12 106/ul Normal 4.20-5.40 [facility] Comment on above: Performed By: #### C BC #### [facility] [address] [place] [address] Dr. Edwin Conklin WBC 21.4 103/ul Critically high 4.0-11.0 [facility] Comment on above: Performed By: #### C BC #### [facility] [address] [address] [address] Edwin Conklin PREG HCG QUALon 02-23-2022 , QUAL Negative Normal NEGATIVE [facility] Comment on above: Performed By: #### P REG #### [facility] [address] [place] [address] Dr. Edwin Conklin PROF CHEM 8 (BAS METB)on Anion gap [Moles/Vol] 14.9 mmol/L Normal [facility] Comment on above: Performed By: #### B MP #### [facility] [address] [place] [address] Dr. Edwin Conklin Calcium [Mass/Vol] 8.5 mg/dL Normal 8.5-10.1 [facility] Comment on above: Performed By: #### B MP #### [facility] [address] [place] [address] Dr. Edwin Conklin Chloride [Moles/Vol] 102 mmol/L Normal 98-107 [facility] Comment on above: Performed By: #### B MP #### [facility] [address] [place] [address] Dr. Edwin Conklin CO2 [Moles/Vol] 23.8 mmol/L Normal 21.0-32.[address] [facility] Comment on above: Performed By: #### B MP #### [facility] [address] [place] [address] Dr. Edwin Conklin Creatinine [Mass/Vol] 0.82 mg/dL Normal 0.55-1.02 [facility] Comment on above: Performed By: #### B MP #### [facility] [address] [address] [address] Edwin Conklin EGFR-AF SURINAMESE >60 Normal >=60 [facility] Comment on above: Performed By: #### B MP #### [facility] [id number] Edwin Conklin EGFR-NON AF SURINAMESE >60 Normal >=60 [facility] Comment on above: Performed By: #### B MP #### [facility] [address] [address] [address] Edwin Conklin Glucose [Mass/Vol] 107 mg/dL Critically high 74-106 [facility] Comment on above: Performed By: #### B MP #### [facility] [address] [address] [address] Edwin Conklin Potassium [Moles/Vol] 3.7 mmol/L Normal 3.5-5.1 [facility] Comment on above: Performed By: #### B MP #### [facility] [address] [address] [address] Edwin Conklin Sodium [Moles/Vol] 137 mmol/L Normal 136-145 [facility] Comment on above: Performed By: #### B MP #### [facility] [address] [address] [address] Edwin Conklin Urea nitrogen [Mass/Vol] 18.0 mg/dL Normal 7.0-18.0 [facility] [place] Comment on above: Performed By: #### B MP #### [facility] [address] [address] [address] Edwin Conklin Urea nitrogen/Creatinine [Mass ratio] 22.0 mg/mg Normal [facility] [place] [facility] Comment on above: Performed By: #### B MP #### [facility] [id number] Edwin Conklin DHEA SERUMon 01-08-2022 Dehydroepiandrosterone (DHEA) 140 ng/dL Normal 31-701 [facility] [place] [facility] Comment on above: Result Comment: Age 1 [...] 701 Performed By: #### D BARBIE. #### [facility] [address] [place] [address] Dr. Edwin Conklin TESTOSTERONE, FREE,DIRECT, T OTALon 01-05-2022 Free Testosterone(Direct) 1.3 pg/mL Normal 0.0-4.2 [facility] [place] [facility] Comment on above: Result Comment: Perf ormed at: BN Performed By: #### T ESTFRD #### [facility] [address] [place] [address] Dr. Edwin Conklin Testosterone [Mass/Vol] 4 ng/dL Critically low 8-60 [facility] Comment on above: Result Comment: Perf ormed at: CB Performed By: #### T ESTFRD #### [facility] [address] [place] [address] Dr. Edwin Conklin DHEA-SULFATEon 01-04-2022 DHEA-Sulfate 134.0 ug/dL Normal 84.8-378.0 [facility] Comment on above: Performed By: #### C BC #### [facility] [address] [place] [address] Dr. Edwin Conklin FSHon 01-04-2022 FSH 4.0 mIU/mL Normal [facility] [place] [facility] Comment on above: Result Comment: Adul t Female: Follicular phase 3.5 - 12.5 Ovulation phase 4.7 - 21.5 Luteal phase 1.7 - 7.7 Postmenopausal 25.8 - 134.8 Performed By: #### L BCFSH #### [facility] [address] [place] [address] Dr. Edwin Conklin LUTEINIZING HORMONE (LH)on 0 01-04-2022 LH 3.8 mIU/mL Normal [facility] [place] [facility] Comment on above: Result Comment: Adul t Female: Follicular phase 2.4 - 12.6 Ovulation phase 14.0 - 95.6 Luteal phase 1.0 - 11.4 Postmenopausal 7.7 - 58.5 Performed By: #### C BC #### [facility] [address] [place] [address] Dr. Edwin Conklin CBC AUTO DIFFon 01-03-2022 BASO # 0.0 103/ul Normal 0.0-0.1 [facility] [place] [facility] Comment on above: Performed By: #### C BC #### [facility] [address] [place] [address] Dr. Edwin Conklin Basophils/100 WBC (Bld) 0.8 % Normal 0.2-2.0 [facility] Comment on above: Performed By: #### C BC #### [facility] [address] [place] [address] Dr. Edwin Conklin EO # 0.2 103/ul Normal 0.0-0.7 [facility] [place] [facility] Comment on above: Performed By: #### C BC #### [facility] [address] [place] [address] Dr. Edwin Conklin Eosinophils/100 WBC (Bld) 3.9 % Normal 0.9-7.0 [facility] [place] [facility] Comment on above: Performed By: #### C BC #### [facility] [address] [place] [address] Dr. Edwin Conklin Erythrocyte distribution width (RBC) [Ratio] 12.7 % Normal 11.0-15.0 [facility] [place] [facility] Comment on above: Performed By: #### C BC #### [facility] [address] [place] [address] Dr. Edwin Conklin Hematocrit (Bld) [Volume fraction] 39.7 % Normal 36.0-48.0 [facility] [place] [facility] Comment on above: Performed By: #### C BC #### [facility] [address] [place] [address] Dr. Edwin Conklin Hemoglobin (Bld) [Mass/Vol] 12.8 g/dL Normal 12.0-16.0 [facility] [place] [facility] Comment on above: Performed By: #### C BC #### [facility] [address] [place] [address] Dr. Edwin Conklin IG # 0.00 10e3/ul Normal 0.00-0.03 [facility] [place] [facility] Comment on above: Performed By: #### C BC #### [facility] [address] [place] [address] Dr. Edwin Conklin IG % 0.0 % Normal 0.0-0.5 [facility] [place] [facility] Comment on above: Performed By: #### C BC #### [facility] [address] [place] [address] Dr. Edwin Conklin LYMPH # 1.9 103/ul Normal 1.2-3.8 [facility] [place] [facility] Comment on above: Performed By: #### C BC #### [facility] [address] [place] [address] Dr. Edwin Conklin Lymphocytes/100 WBC (Bld) 37.4 % Normal 20.5-60.0 [facility] [place] [facility] Comment on above: Performed By: #### C BC #### [facility] [address] [place] [address] Dr. Edwin Conklin MANUAL DIFF REQ NO Normal [facility] Comment on above: Performed By: #### C BC #### [facility] [address] [place] [address] Dr. Edwin Conklin MCH (RBC) [Entitic mass] 28.9 pg Normal 26.7-34.0 [facility] Comment on above: Performed By: #### C BC #### [facility] [address] [place] [address] Dr. Edwin Conklin MCHC (RBC) [Mass/Vol] 32.2 g/dL Normal 29.9-35.2 [facility] [place] [facility] Comment on above: Performed By: #### C BC #### [facility] [address] [place] [address] Dr. Edwin Conklin MCV (RBC) [Entitic vol] 89.6 fL Normal 81.0-99.0 [facility] Comment on above: Performed By: #### C BC #### [facility] [address] [place] [address] Dr. Edwin Conklin MONO # 0.4 103/ul Normal 0.3-0.8 [facility] [place] [facility] Comment on above: Performed By: #### C BC #### [facility] [address] [place] [address] Dr. Edwin Conklin Monocytes/100 WBC (Bld) 7.8 % Normal 1.7-12.0 [facility] Comment on above: Performed By: #### C BC #### [facility] [address] [place] [address] Dr. Edwin Conklin NEUT # 2.6 103/ul Normal 1.4-6.5 [facility] [place] [facility] Comment on above: Performed By: #### C BC #### [facility] [address] [place] [address] Dr. Edwin Conklin Neutrophils/100 WBC (Bld) 50.1 % Normal 43.0-75.0 [facility] [place] [facility] Comment on above: Performed By: #### C BC #### [facility] [address] [place] [address] Dr. Edwin Conklin Platelet mean volume (Bld) [Entitic vol] 9.1 fL Critically low 9.5-13.5 [facility] Comment on above: Performed By: #### C BC #### [facility] [address] [place] [address] Dr. Edwin Conklin PLT 293 103/ul Normal 150-450 [facility] [place] [facility] Comment on above: Performed By: #### C BC #### [facility] [address] [place] [address] Dr. Edwin Conklin RBC 4.43 106/ul Normal 4.20-5.40 [facility] [place] [facility] Comment on above: Performed By: #### C BC #### [facility] [address] [place] [address] Dr. Edwin Conklin WBC 5.1 103/ul Normal 4.0-11.0 [facility] Comment on above: Performed By: #### C BC #### [facility] [address] [place] [address] Dr. Edwin Conklin GLYCOHEMOGLOBIN A1Con 2021 ADA RECOMMENDATION SEE BELOW Normal [facility] Comment on above: Result Comment: ADA RECOMMENDED LIMIT 4.0 - 6.0 ADA THERAPEUTIC TARGET < 7.0 ACTION SUGGESTED > 7.0 Performed By: #### A 1C #### [facility] [address] [place] [address] Dr. Edwin Conklin Glucose [Mass/Vol] 103 mg/dL Normal [facility] Comment on above: Performed By: #### A 1C #### [facility] [address] [place] [address] Dr. Edwin Conklin HbA1c (Bld) [Mass fraction] 5.2 % Normal 4.5-6.2 [facility] Comment on above: Performed By: #### A 1C #### [facility] [address] [place] [address] Dr. Edwin Conklin TSHon 01-03-2022 TSH 3.882 uIU/mL Critically high 0.358-3.[address] [facility] Comment on above: Performed By: #### T SH #### [facility] [address] [place] [address] Dr. Edwin Conklin Covid-19 PCR (CVDTB)on 07-10 SARS-CoV-2 (COVID-19) RNA YAHIR+probe Ql (Unsp spec) Not detected Normal NOT DETECTED [facility] Comment on above: Result Comment: This test is not yet approved or cleared by the [place] FDA. When there are no FDA-approved or cleared tests available, and other criteria are met, FDA can make tests available under an emergency access mechanism called an Emergency Use Authorization (EUA). The EUA for this test is supported by the [place] of Health and Human Service's (HHS's) declaration [...] SARS-CoV-2. Performed By: #### C VDTBH #### [facility] [address] [place] [address] Dr. 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 She is lactating. Prema reports that milk production is suboptimal for the baby based on the senior sales consultant assessment. She had normal TFTs in [...] or other neuroendocrine tumors. 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 Follow-up and Disposition History Recorded Encounter Status:Closed by MILLY BARROS MD on 10/01/18 Normal [facility] Free T4on 10-01-2018 Free T4 [Mass/Vol] 1.6 ng/dL Normal 0.9-1.7 [facility] Comment on above: Performed By: #### T SH, FT4 #### [facility] [address], [place] [address] PROGRESSon 10-01-2018 PROGRESS HNO ID: [id number] Author: Milly Barros Service: ? 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 She is lactating. Prema reports that milk production is suboptimal for the baby based on the senior sales consultant assessment. She had normal TFTs in [...] or other neuroendocrine tumors. Current Outpatient Medications: Obavdpnr-Ui-Ynk-Fe- FA ( VITAMIN) tab Take 1 tablet [...] with more than 50% of the total locl-fb-yrfh time of the visit in counseling / coordination of care. RTC in a year Milly Barros MD, PhD Normal [facility] TSHon 10-01-2018 TSH Qn 0.046 uU/mL Low 0.400-5.500 [facility] Comment on above: Result Comment: If t he patient is , TSH reference range varies by gestational period: First Trimester 0.100-2.500 uU/mL Second Trimester 0.200-3.000 uU/mL Third Trimester 0.300-3.000 uU/mL References: 1. Vicente L, Franchesca M, Kingsley EK, et al. Management of Thyroid Dysfunction during and : An Endocrine Society Clinical Practice Guideline. J Clin Endocrinol Metab, 2012:97:7520-0859. 2. Juan M DE LUNA. Overview of thyroid disease in . UpToDate. 2016. Accessed on December 25, 2015. Performed By: #### T SH, FT4 #### [facility] [address] [id number] Encounters Encounter Date Encounter Type Care Provider Facility Start: 07-05-2023 End: 07-05-2023 ambulatory ONEIL TAFOYA Not Available Start: 02-16-2023 End: 02-17-2023 ambulatory ATUL Duran [facility] Start: 04-27-2022 End: 04-27-[address] ONEIL TAFOYA Facility: Start: 08-28-[address] LARRY PUTNAM [facility] lity:H1 Start: 02-23-2022 End: 02-23-2022 ambulatory RUIZ Mee ONEALTARA Facility:[facility] Start: 01-20-[address] ONEIL TAFOYA Facility :[facility] Start: 01-03-2022 End: 01-04-[address] ONEIL TAFOYA Facility:[facility] Start: 07-28-2021 End: 07-28-[address] LARRY PUTNAM Facility:[facility]1 Payers Date Payer Category Payer Unknown [id number] 1990 Unknown [id number] 2.16.84 [id number] 1990 Unknown [id number] 2.16.84 [id number] 1990 Unknown [id number] 2.16.84 [id number] 1990 Unknown [id number] 2.16.84 [id number] 1990 Unknown [id number] 2.16.84 [id number] 1990 Unknown [id number] 2.16.84 [id number] 1990 Unknown [id number] 2.16.8 [id number] 1990 Unknown [id number] [id number] 1959 Self-pay 1959 Unknown [id number] Summary Purpose Family History No Family History Records FoundNo Family History Records FoundNo Family History Records FoundNo Family History Records Found Advance Directives No Advanced Directives Records FoundNo Advanced Directives Records FoundNo Advanced Directives Records FoundNo Advanced Directives Records Found Additional Source Comments INFORMATION SOURCE (unrecogn ized section and content) DATE CREATED AUTHOR 04/14/2019 [facility]ATED [facility] DATE CREATED AUTHOR AUTHOR'S ORGANIZ ATION 02/18/2023 [facility] DATE CREATED AUTHOR AUTHOR'S ORGANIZ ATION 07/07/2023 [facility] FOR RECORDS PERTAINING TO PATIENTS WHO ARE [...] BE BASED ON THE PRIMARY CLINICAL RECORDS. [facility] [employer] provides no warranty or guarantee of the accuracy or completeness of information in this document.
[2023-08-08 11:12] LABS: Estimated Average Glucose 100 mg/dL; Glycohemoglobin A1C 5.1 % (4.5-6.2)
[2023-08-08 11:30] LABS: Alanine Aminotransferase 22 U/L (14-59); Albumin Globulin Ratio 1.1; Albumin Level 3.9 g/dL (3.4-5.0); Alkaline Phosphatase 48 U/L (46-116); Anion Gap 9.8; Aspartate Amino Transferase 11 U/L (15-37); BUN Creatinine Ratio 16.2; Bilirubin Total 0.4 mg/dL (0.2-1.0); Calcium 8.4 mg/dL (8.5-10.1); Chloride 105 mmol/L (98-107); Estimated GFR (African America >60 (>=60); Estimated GFR (Non-African Ame >60 (>=60); Free T3 2.24 pg/mL (2.18-3.98); Globulin 3.4 g/dL; Glucose 81 mg/dL (74-106); Potassium 3.8 mmol/L (3.5-5.1); Sodium 139 mmol/L (136-145); Thyroid Stimulating Hormone 3.464 uIU/mL (0.358-3.740); Total Protein 7.3 g/dL (6.4-8.2)
[2023-08-08 11:33] LABS: Free T4 0.85 ng/dL (0.76-1.46)
[2023-08-09 08:13] LABS: Estradiol 23.2 pg/mL (.); Progesterone 0.1 ng/mL (.); Sex Horm Binding Glob, Serum 21.6 nmol/L (24.6-122.0)
[2023-08-09 12:09] LABS: C-Peptide, Serum 2.6 ng/mL (1.1-4.4)
[2023-08-09 17:09] LABS: Thyroglobulin Antibody 3.6 IU/mL (0.0-0.9); Thyroid Peroxidase (TPO) Ab <9 IU/mL (0-34)
[2023-08-11 13:08] LABS: Calcitriol(1,25 di-OH Vit D) 36.1 pg/mL (24.8-81.5)
[2023-08-12 17:08] LABS: Serotonin, Serum 98 ng/mL (31-207)
[2023-08-13 09:11] LABS: Reverse T3, Serum 15.3 ng/dL (9.2-24.1)
[2023-08-15 11:13] LABS: Estrone, Serum 22 pg/mL (27-231)
[2023-08-16 12:09] LABS: Thyroglobulin (TG-RIA) 10 ng/mL (.)
[2023-08-17 09:09] LABS: Cortisol, Free Dialysis, LCMS 0.313 ug/dL (.)
[2023-08-18 22:07] LABS: Free Testosterone(Direct) 0.8 pg/mL (0.0-4.2); Testosterone 12 ng/dL (8-60)
== END 2023-08-08 10:04 | disposition home or self-care (01) ==
LOC: LAB 10:07
PROVIDERS: Visit Provider Obstetrics & Gynecology
DX: Z79.899 Other long term (current) drug therapy (principal); E34.9 Endocrine disorder, unspecified
CPT/HCPCS: 36415; 80053; 82530; 82627; 82652; 82670; 82679; 82728; 83036; 83525; 84144; 84260; 84270; 84402; 84403; 84432; 84436; 84439; 84443; 84481; 84482; 84681; 85025; 86376; 86800

== ENCOUNTER 2023-08-08 10:10 | Outpatient (OUT) | payer OTHER, SELFPAY ==
--- OUTSIDE RECORDS SUMMARY | 2023-08-08 10:15 | XMS_ITS | CCD ---
Author Name Unknown Address [address] [facility] [address] [place] [id number] Organization [facility] Care Team Providers Care Sheet Turner Name Role Phone LOTTIE, DR RIGGS Attending [...] (2 sources) Amoxicillin Drug Allergy 1990 [facility] Repository (1 source) Penicillins Drug allergy (disorder) 12-04-2016 [facility] Rep[facility] Problems Active Problems Problem [...] 02-17-2023 Ferritin [Mass/Vol] 32 ng/mL Normal 13-150 [facility] Comment on above: Performed By: #### L IPR, GLYHGB, FT3, FERI, FT4 #### [facility] [address] [place] [address] [phone] Shipping Assistant: Alcon Farfan MD #### CDP, TSH #### [facility] [address] [place] [address] Shipping Assistant: Chace Leon MD Hemoglobin A1Con 02-17-2023 Glucose [Mass/Vol] 100 mg/dL Normal [facility] Comment on above: Result Comment: The ADA and AACC recommend providing the estimated average glucose result to permit better patient understanding of their HBA1c result. Performed By: #### L IPR, GLYHGB, FT3, FERI, FT4 #### [facility] [address] [place] [address] [phone] Shipping Assistant: Alcon Farfan MD #### CDP, TSH #### [facility] [address] [place], [place] [phone] Shipping Assistant: Chace Leon MD HbA1c (Bld) [Mass fraction] 5.1 % Normal 4.0-6.0 [facility] Comment on above: Performed By: #### L IPR, GLYHGB, FT3, FERI, FT4 #### [address] [phone] Shipping Assistant: Alcon Farfan MD #### CDP, TSH #### [facility] [address] [place] [phone] Shipping Assistant: Chace Leon MD T3, Freeon 7 Free T3 [Mass/Vol] 2.90 pg/mL Normal 2.02-4.43 [facility] Comment on above: Performed By: #### L IPR, GLYHGB, FT3, FERI, FT4 #### [address] [address] Shipping Assistant: Alcon Farfan MD #### CDP, TSH #### [facility] [address] [place] [address] [address] [place] [phone] Shipping Assistant: Chace Leon MD CBC with Diffon 1 Abs. Basophil 0.05 k/uL Normal 0.00-0.20 [facility] Comment on above: Performed By: #### L IPR, GLYHGB, FT3, FERI, FT4 #### [address] [phone] Shipping Assistant: Alcon Farfan MD #### CDP, TSH #### [facility] [address] [place] [address] Shipping Assistant: Chace Leon MD Abs.Imm.Granulocyte <0.03 Normal 0.00-0.30 [facility] Comment on above: Performed By: #### L IPR, GLYHGB, FT3, FERI, FT4 #### [address] [address] Shipping Assistant: Alcon Farfan MD #### CDP, TSH #### [address] [place] [phone] ( Shipping Assistant: Chace Leon MD Abs.Neutrophil (Seg) 3.53 k/uL Normal 1.50-8.10 [facility] Comment on above: Performed By: #### L IPR, GLYHGB, FT3, FERI, FT4 #### [place] [address] Shipping Assistant: Alcon Farfan MD #### CDP, TSH #### [address] [place] [phone] ( Shipping Assistant: Chace Leon MD Basophils/100 WBC (Bld) 1 % Normal 0-2 [facility] Comment on above: Performed By: #### L IPR, GLYHGB, FT3, FERI, FT4 #### [place] [address] Shipping Assistant: Alcon Farfan MD #### CDP, TSH #### [address] [place] [phone] Shipping Assistant: Chace Leon MD Eosinophils (Bld) [#/Vol] 0.14 10*3/uL Normal 0.00-0.4 4 [facility] Comment on above: Performed By: #### L IPR, GLYHGB, FT3, FERI, FT4 #### [place] [address] Shipping Assistant: Alcon Farfan MD #### CDP, TSH #### [address] [place] [phone] Shipping Assistant: Chace Leon MD Eosinophils/100 WBC (Bld) 2 % Normal 1-4 [facility] Comment on above: Performed By: #### L IPR, GLYHGB, FT3, FERI, FT4 #### [address] [address] Shipping Assistant: Alcon Farfan MD #### CDP, TSH #### [address] [place] [phone] Shipping Assistant: Chace Leon MD Erythrocyte distribution width (RBC) [Ratio] 12.9 % Normal 11.8-14.4 [facility] Comment on above: Performed By: #### L IPR, GLYHGB, FT3, FERI, FT4 #### [address] [address] Shipping Assistant: Alcon Farfan MD #### CDP, TSH #### [address] [place] [phone] Shipping Assistant: Chace Leon MD Hematocrit (Bld) [Volume fraction] 44.7 % Normal 36.3-47.1 [facility] Comment on above: Performed By: #### L IPR, GLYHGB, FT3, FERI, FT4 #### [address] [address] Shipping Assistant: Alcon Farfan MD #### CDP, TSH #### [address] [place] [phone] Shipping Assistant: Chace Leon MD Hemoglobin (Bld) [Mass/Vol] 14.6 g/dL Normal 11.9-15.1 [facility] Comment on above: Performed By: #### L IPR, GLYHGB, FT3, FERI, FT4 #### [address] [address] Shipping Assistant: Alcon Farfan MD #### CDP, TSH #### [address] [place], [place] [phone] Shipping Assistant: Chace Leon MD Immature granulocytes/100 WBC (Bld) 0 % Normal 0 [facility] Comment on above: Performed By: #### L IPR, GLYHGB, FT3, FERI, FT4 #### [address] [address] Shipping Assistant: Alcon Farfan MD #### CDP, TSH #### [address] [place], [place] [phone] Shipping Assistant: Chace Leon MD Lymphocytes (Bld) [#/Vol] 1.64 10*3/uL Normal 1.10-3.7 0 [facility] Comment on above: Performed By: #### L IPR, GLYHGB, FT3, FERI, FT4 #### [address] [address] Shipping Assistant: Alcon Farfan MD #### CDP, TSH #### [address] [place], [place] [phone] Shipping Assistant: Chace Leon MD Lymphocytes/100 WBC (Bld) 28 % Normal 24-43 [facility] Comment on above: Performed By: #### L IPR, GLYHGB, FT3, FERI, FT4 #### [address] [address] Shipping Assistant: Alcon Farfan MD #### CDP, TSH #### [address] [place], [place] [phone] Shipping Assistant: Chace Leon MD MCH (RBC) [Entitic mass] 29.3 pg Normal 25.2-33.5 [facility] Comment on above: Performed By: #### L IPR, GLYHGB, FT3, FERI, FT4 #### [address] [address] Shipping Assistant: Alcon Farfan MD #### CDP, TSH #### [address] [place], [place] [phone] Shipping Assistant: Chace Leon MD MCHC (RBC) [Mass/Vol] 32.7 g/dL Normal 28.4-34.[address] [facility] Comment on above: Performed By: #### L IPR, GLYHGB, FT3, FERI, FT4 #### [address] [phone] Shipping Assistant: Alcon Farfan MD #### CDP, TSH #### [address] [place] [phone] Shipping Assistant: Chace Leon MD MCV (RBC) [Entitic vol] 89.6 fL Normal 82.6-102.9 [facility] Comment on above: Performed By: #### L IPR, GLYHGB, FT3, FERI, FT4 #### [address] [phone] Shipping Assistant: Alcon Farfan MD #### CDP, TSH #### [address] [place] [phone] Shipping Assistant: Chace Leon MD Monocytes (Bld) [#/Vol] 0.44 10*3/uL Normal 0.10-1.20 [facility] Comment on above: Performed By: #### L IPR, GLYHGB, FT3, FERI, FT4 #### [address] [address] Shipping Assistant: Alcon Farfan MD #### CDP, TSH #### [address] [place] [address] Shipping Assistant: Chace Leon MD Monocytes/100 WBC (Bld) 8 % Normal 3-12 [facility] Comment on above: Performed By: #### L IPR, GLYHGB, FT3, FERI, FT4 #### [address] [address] Shipping Assistant: Alcon Farfan MD #### CDP, TSH #### [address] [place], [place] [phone] Shipping Assistant: Chace Leon MD Neutrophil (Seg) 61 % Normal 36-65 [facility] Comment on above: Performed By: #### L IPR, GLYHGB, FT3, FERI, FT4 #### [address] [address] Shipping Assistant: Alcon Farfan MD #### CDP, TSH #### [address] [place] [phone] Shipping Assistant: Chace Leon MD NRBC Automated 0.0 per 100 WBC Normal 0.0 [facility] Comment on above: Performed By: #### L IPR, GLYHGB, FT3, FERI, FT4 #### [address] [address] Shipping Assistant: Alcon Farfan MD #### CDP, TSH #### [address] [place], [place] [phone] Shipping Assistant: Chace Leon MD Platelet mean volume (Bld) [Entitic vol] 9.9 fL Normal 8.1-13.5 [facility] Comment on above: Performed By: #### L IPR, GLYHGB, FT3, FERI, FT4 #### [address] [address] Shipping Assistant: Alcon Farfan MD #### CDP, TSH #### [facility] [address] [place] [address] Dr. [place], [place] [phone] Shipping Assistant: Chace Leon MD Platelets (Bld) [#/Vol] 287 10*3/uL Normal 138-453 [facility] Comment on above: Performed By: #### L IPR, GLYHGB, FT3, FERI, FT4 #### [address] [address] Shipping Assistant: Alcon Farfan MD #### CDP, TSH #### [address] [place] [phone] Shipping Assistant: Chace Leon MD RBC (Bld) [#/Vol] 4.99 10*6/uL Normal 3.95-5.11 [facility] Comment on above: Performed By: #### L IPR, GLYHGB, FT3, FERI, FT4 #### [address] [address] Shipping Assistant: Alcon Farfan MD #### CDP, TSH #### [address] [place] [phone] Shipping Assistant: Chace Leon MD WBC (Bld) [#/Vol] 5.8 10*3/uL Normal 3.5-11.3 [facility] Comment on above: Performed By: #### L IPR, GLYHGB, FT3, FERI, FT4 #### [address] [address] Shipping Assistant: Alcon Farfan MD #### CDP, TSH #### [address] [place] [phone] Shipping Assistant: Chace Leon MD Lipid Profileon 02-16-2023 Cholesterol [Mass/Vol] 149 mg/dL Normal <200 [facility] Comment on above: Result Comment: Cholesterol Guidelines: <200 Desirable 200-240 Borderline >240 Undesirable Performed By: #### L IPR, GLYHGB, FT3, FERI, FT4 #### [address] [address] Shipping Assistant: Alcon Farfan MD #### CDP, TSH #### [facility] [address] [place] [address] Shipping Assistant: Chace Leon MD Cholesterol in HDL [Mass/Vol] 42 mg/dL Normal >40 [facility] Comment on above: Result Comment: HDL Guidelines: <40 Undesirable 40-59 Borderline >59 Desirable Performed By: #### L IPR, GLYHGB, FT3, FERI, FT4 #### [address] [phone] Shipping Assistant: Alcon Farfan MD #### CDP, TSH #### [facility] [address] [place] [address] [place] [address] Shipping Assistant: Chace Leon MD Cholesterol in LDL [Mass/Vol] 80 mg/dL Normal 0-130 [facility] Comment on above: Result Comment: LDL Guidelines: <100 Desirable 100-129 Near to/above Desirable 130-159 Borderline >159 Undesirable Direct (measured) LDL and calculated LDL are not interchangeable tests. Performed By: #### L IPR, GLYHGB, FT3, FERI, FT4 #### [address] [phone] Shipping Assistant: Alcon Farfan MD #### CDP, TSH #### [facility] [address] [place] [address] [place] [address] Shipping Assistant: Chace Leon MD Cholesterol.total/Choleste rol in HDL [Mass ratio] 3.5 {ratio} Normal <5 [facility] Comment on above: Performed By: #### L IPR, GLYHGB, FT3, FERI, FT4 #### [address] [address] Shipping Assistant: Alcon Farfan MD #### CDP, TSH #### [facility] [address] [place] [address] Shipping Assistant: Chace Leon MD Triglyceride [Mass/Vol] 134 mg/dL Normal <150 [facility] Comment on above: Result Comment: Triglyceride Guidelines: <150 Desirable 150-199 Borderline 200-499 High >499 Very high Based on AHA Guidelines for fasting triglyceride, April 2012. Performed By: #### L IPR, GLYHGB, FT3, FERI, FT4 #### [address] [address] Shipping Assistant: Alcon Farfan MD #### CDP, TSH #### [facility] [address] [place] [address] [place] [address] Shipping Assistant: Chace Leon MD Thyroid Stim. Horm.on 2022 Thyroid Stim. Horm. 3.89 uIU/mL Normal 0.30-5.00 [facility] Comment on above: Performed By: #### L IPR, GLYHGB, FT3, FERI, FT4 #### [address] [address] Shipping Assistant: Alcon Farfan MD #### CDP, TSH #### [address] [place] [address] Shipping Assistant: Chace Leon MD Thyroxine, Freeon 02-16-2023 Thyroxine, Free 1.0 ng/dL Normal 0.9-1.7 [facility] Comment on above: Performed By: #### L IPR, GLYHGB, FT3, FERI, FT4 #### [address] [address] Shipping Assistant: Alcon Farfan MD #### CDP, TSH #### [facility] [address] [place] [address] [place] [address] Shipping Assistant: Chace Leon MD PAP ACOG PANEL 2: 30 to 65on 05-06-2022 . . Normal [facility] Comment on above: Result Comment: Perf ormed at: WB Performed By: #### 4 [id number] #### [facility] [address] [place] [address] [address] Edwin Conklin Age Gdln ACOG Testing 30-65 Normal [facility] Comment on above: Performed By: #### 4 [id number] #### [facility] [address] [place] [address] Dr. Edwin Conklin DIAGNOSIS: Comment Normal [facility] Comment on above: Result Comment: NEGA TIVE FOR INTRAEPITHELIAL LESION OR MALIGNANCY. Performed at: WB Performed By: #### 4 [id number] #### [facility] [address] [place] [address] Dr. Edwin Conklin HPV Aptima Positive Abnormal Negative [facility] Comment on above: Result Comment: This nucleic acid amplification test detects fourteen high-risk HPV types (16,18,31,33,35,39,45,51,52,56,58,59,66,68) without differentiation. Performed at: =G Performed By: #### 4 [id number] #### [facility] [address] [place] [address] Dr. Edwin Conklin HPV Genotype 16 Negative Normal Negative [facility] Comment on above: Result Comment: Perf ormed at: =G Performed By: #### 4 [id number] #### [facility] [address] [place] [address] Dr. Edwin Conklin HPV Genotype 18,45 Negative Normal Negative [facility] Comment on above: Result Comment: Perf ormed at: =G Performed By: #### 4 [id number] #### [facility] [address] [place] [address] Dr. Edwin Conklin Methodology: Comment Normal [facility] Comment on above: Result Comment: This liquid based ThinPrep(R) pap test was screened with the use of an image guided system. Performed at: WB Performed By: #### 4 [id number] #### [facility] [address] [place] [address] Dr. Edwin Conklin Note: Comment Normal [facility] Comment on above: Result Comment: The Pap smear is a screening test designed to aid in the detection of premalignant and malignant conditions of the uterine cervix. It is not a diagnostic procedure and should not be used as the sole means of detecting cervical cancer. Both false-positive and false-negative reports do occur. . Performed at: WB Performed By: #### 4 [id number] #### [facility] [address] [place] [address] Dr. Edwin Conklin Performed by: Comment Normal [facility] Comment on above: Result Comment: Karissa Alexander, Sharepoint Developer Performed at: WB Performed By: #### 4 [id number] #### [facility] [address] [place] [address] Dr. Edwin Conklin Specimen adequacy: Comment Normal [facility] Comment on above: Result Comment: Sati sfactory for evaluation. Endocervical and/or squamous metaplastic cells (endocervical component) are present. Performed at: WB Performed By: #### 4 [id number] #### [facility] [address] [place] [address] Dr. Edwin Conklin CBC AUTO DIFFon 02-23-2022 BASO # 0.1 103/ul Normal 0.0-0.1 [facility] Comment on above: Performed By: #### C BC #### [facility] [address] [place] [address] Dr. Edwin Conklin Basophils/100 WBC (Bld) 0.3 % Normal 0.2-2.0 [facility] Comment on above: Performed By: #### C BC #### [facility] [address] [place] [address] Dr. Edwin Conklin EO # 0.1 103/ul Normal 0.0-0.7 [facility] Comment on above: Performed By: #### C BC #### [facility] [address] [place] [address] Dr. Edwin Conklin Eosinophils/100 WBC (Bld) 0.4 % Critically low 0.9-7. 0 [facility] Comment on above: Performed By: #### C BC #### [facility] [address] [place] [address] Dr. Edwin Conklin Erythrocyte distribution width (RBC) [Ratio] 13.2 % Normal 11.0-15.0 [facility] Comment on above: Performed By: #### C BC #### [facility] [address] [place] [address] [address] Edwin Conklin Hematocrit (Bld) [Volume fraction] 45.2 % Normal 36.0-48.0 [facility] Comment on above: Performed By: #### C BC #### [facility] [address] [address] [address] Edwin Conklin Hemoglobin (Bld) [Mass/Vol] 14.8 g/dL Normal 12.0-16.0 [facility] Comment on above: Performed By: #### C BC #### [facility] [address] [place] [address] Dr. Edwin Conklin IG # 0.11 10e3/ul Critically high 0.00-0.03 [facility] Comment on above: Performed By: #### C BC #### [facility] [address] [place] [address] Dr. Edwin Conklin IG % 0.5 % Normal 0.0-0.5 [facility] Comment on above: Performed By: #### C BC #### [facility] [address] [place] [address] Dr. Edwin Conklin LYMPH # 1.3 103/ul Normal 1.2-3.8 [facility] Comment on above: Performed By: #### C BC #### [facility] [address] [place] [address] Dr. Edwin Conklin Lymphocytes/100 WBC (Bld) 6.0 % Critically low 20.5-6 0.0 [facility] Comment on above: Performed By: #### C BC #### [facility] [address] [place] [address] Dr. Edwin Conklin MANUAL DIFF REQ NO Normal [facility] Comment on above: Performed By: #### C BC #### [facility] [address] [place] [address] Dr. Edwin Conklin MCH (RBC) [Entitic mass] 28.9 pg Normal 26.7-34.0 [facility] Comment on above: Performed By: #### C BC #### [facility] [address] [place] [address] [address] Edwin Conklin MCHC (RBC) [Mass/Vol] 32.7 g/dL Normal 29.9-35.2 [facility] Comment on above: Performed By: #### C BC #### [facility] [address] [address] [address] Edwin Conklin MCV (RBC) [Entitic vol] 88.3 fL Normal 81.0-99.0 [facility] Comment on above: Performed By: #### C BC #### [facility] [address] [address] [address] Edwin Conklin MONO # 1.1 103/ul Critically high 0.3-0.8 [facility] Comment on above: Performed By: #### C BC #### [facility] [address] [address] [address] Edwin Conklin Monocytes/100 WBC (Bld) 5.2 % Normal 1.7-12.0 [facility] Comment on above: Performed By: #### C BC #### [facility] [address] [address] [address] Edwin Conklin NEUT # 18.8 103/ul Critically high 1.4-6.5 [facility] Comment on above: Performed By: #### C BC #### [facility] [address] [place] [address] Dr. Edwin Conklin Neutrophils/100 WBC (Bld) 87.6 % Critically high 43.0- 75.0 [facility] Comment on above: Performed By: #### C BC #### [facility] [address] [address] [address] Edwin Conklin Platelet mean volume (Bld) [Entitic vol] 9.4 fL Critically low 9.5-13.5 [facility] Comment on above: Performed By: #### C BC #### [facility] [address] [place] [address] Dr. Edwin Conklin PLT 326 103/ul Normal 150-450 [facility] Comment on above: Performed By: #### C BC #### [facility] [address] [address] [address] Edwin Conklin RBC 5.12 106/ul Normal 4.20-5.40 [facility] Comment on above: Performed By: #### C BC #### [facility] [address] [place] [address] Dr. Edwin Conklin WBC 21.4 103/ul Critically high 4.0-11.0 [facility] Comment on above: Performed By: #### C BC #### [facility] [address] [address] [address] Edwin Conklin PREG HCG QUALon 02-23-2022 , QUAL Negative Normal NEGATIVE [facility] Comment on above: Performed By: #### P REG #### [facility] [address] [place] [address] Dr. Edwin Conklin PROF CHEM 8 (BAS METB)on Anion gap [Moles/Vol] 14.9 mmol/L Normal [facility] Comment on above: Performed By: #### B MP #### [facility] [address] [place] [address] Dr. Edwin Conklin Calcium [Mass/Vol] 8.5 mg/dL Normal 8.5-10.1 [facility] Comment on above: Performed By: #### B MP #### [facility] [address] [place] [address] Dr. Edwin Conklin Chloride [Moles/Vol] 102 mmol/L Normal 98-107 [facility] Comment on above: Performed By: #### B MP #### [facility] [address] [place] [address] Dr. Edwin Conklin CO2 [Moles/Vol] 23.8 mmol/L Normal 21.0-32.0 [facility] Comment on above: Performed By: #### B MP #### [facility] [address] [place] [address] Dr. Edwin Conklin Creatinine [Mass/Vol] 0.82 mg/dL Normal 0.55-1.02 [facility] Comment on above: Performed By: #### B MP #### [facility] [address] [address] [address] Edwin Conklin EGFR-AF BAHRAINI >60 Normal >=60 [facility] Comment on above: Performed By: #### B MP #### [facility] [address] [id number] Edwin Conklin EGFR-NON AF BAHRAINI >60 Normal >=60 [facility] Comment on above: Performed By: #### B MP #### [facility] [address] [address] [address] Edwin Conklin Glucose [Mass/Vol] 107 mg/dL Critically high 74-106 [facility] Comment on above: Performed By: #### B MP #### [facility] [address] [address] [address] Edwin Conklin Potassium [Moles/Vol] 3.7 mmol/L Normal 3.5-5.1 [facility] Comment on above: Performed By: #### B MP #### [facility] [address] [address] [address] Edwin Conklin Sodium [Moles/Vol] 137 mmol/L Normal 136-145 [facility] Comment on above: Performed By: #### B MP #### [facility] [address] [address] [address] Edwin Conklin Urea nitrogen [Mass/Vol] 18.0 mg/dL Normal 7.0-18.0 [facility] Comment on above: Performed By: #### B MP #### [facility] [address] [address] [address] Edwin Conklin Urea nitrogen/Creatinine [Mass ratio] 22.0 mg/mg Normal [facility] Comment on above: Performed By: #### B MP #### [facility] [id number] Edwin Conklin DHEA SERUMon 01-08-2022 Dehydroepiandrosterone (DHEA) 140 ng/dL Normal 31-701 [facility] Comment on above: Result Comment: Age [...] 89 Performed By: #### D BARBIE. #### [facility] [address] [place] [address] Dr. Edwin Conklin TESTOSTERONE, FREE,DIRECT, T OTALon 01-05-2022 Free Testosterone(Direct) 1.3 pg/mL Normal 0.0-4.2 [facility] Comment on above: Result Comment: Perf ormed at: BN Performed By: #### T ESTFRD #### [facility] [address] [place] [address] Dr. Edwin Conklin Testosterone [Mass/Vol] 4 ng/dL Critically low 8-60 [facility] Comment on above: Result Comment: Perf ormed at: CB Performed By: #### T ESTFRD #### [facility] [address] [place] [address] Dr. Edwin Conklin DHEA-SULFATEon 01-04-2022 DHEA-Sulfate 134.0 ug/dL Normal 84.8-378.0 [facility] Comment on above: Performed By: #### C BC #### [facility] [address] [place] [address] Dr. Edwin Conklin FSHon 01-04-2022 FSH 4.0 mIU/mL Normal [facility] Comment on above: Result Comment: Adul t Female: Follicular phase 3.5 - 12.5 Ovulation phase 4.7 - 21.5 Luteal phase 1.7 - 7.7 Postmenopausal 25.8 - 134.8 Performed By: #### L BCFSH #### [facility] [address] [place] [address] Dr. Edwin Conklin LUTEINIZING HORMONE (LH)on 0 01-04-2022 LH 3.8 mIU/mL Normal [facility] Comment on above: Result Comment: Adul t Female: Follicular phase 2.4 - 12.6 Ovulation phase 14.0 - 95.6 Luteal phase 1.0 - 11.4 Postmenopausal 7.7 - 58.5 Performed By: #### C BC #### [facility] [address] [place] [address] Dr. Edwin Conklin CBC AUTO DIFFon 01-03-2022 BASO # 0.0 103/ul Normal 0.0-0.1 [facility] Comment on above: Performed By: #### C BC #### [facility] [address] [place] [address] Dr. Edwin Conklin Basophils/100 WBC (Bld) 0.8 % Normal 0.2-2.0 [facility] Comment on above: Performed By: #### C BC #### [facility] [address] [place] [address] Dr. Edwin Conklin EO # 0.2 103/ul Normal 0.0-0.7 [facility] Comment on above: Performed By: #### C BC #### [facility] [address] [place] [address] Dr. Edwin Conklin Eosinophils/100 WBC (Bld) 3.9 % Normal 0.9-7.0 [facility] Comment on above: Performed By: #### C BC #### [facility] [address] [place] [address] Dr. Edwin Conklin Erythrocyte distribution width (RBC) [Ratio] 12.7 % Normal 11.0-15.0 [facility] Comment on above: Performed By: #### C BC #### [facility] [address] [place] [address] Dr. Edwin Conklin Hematocrit (Bld) [Volume fraction] 39.7 % Normal 36.0-48.0 [facility] Comment on above: Performed By: #### C BC #### [facility] [address] [place] [address] Dr. Edwin Conklin Hemoglobin (Bld) [Mass/Vol] 12.8 g/dL Normal 12.0-16.0 [facility] Comment on above: Performed By: #### C BC #### [facility] [address] [place] [address] Dr. Edwin Conklin IG # 0.00 10e3/ul Normal 0.00-0.03 [facility] Comment on above: Performed By: #### C BC #### [facility] [address] [place] [address] Dr. Edwin Conklin IG % 0.0 % Normal 0.0-0.5 [facility] Comment on above: Performed By: #### C BC #### [facility] [address] [place] [address] Dr. Edwin Conklin LYMPH # 1.9 103/ul Normal 1.2-3.8 [facility] Comment on above: Performed By: #### C BC #### [facility] [address] [place] [address] Dr. Edwin Conklin Lymphocytes/100 WBC (Bld) 37.4 % Normal 20.5-60.0 [facility] Comment on above: Performed By: #### C BC #### [facility] [address] [place] [address] Dr. Edwin Conklin MANUAL DIFF REQ NO Normal [facility] Comment on above: Performed By: #### C BC #### [facility] [address] [place] [address] Dr. Edwin Conklin MCH (RBC) [Entitic mass] 28.9 pg Normal 26.7-34.0 [facility] Comment on above: Performed By: #### C BC #### [facility] [address] [place] [address] Dr. Edwin Conklin MCHC (RBC) [Mass/Vol] 32.2 g/dL Normal 29.9-35.2 [facility] Comment on above: Performed By: #### C BC #### [facility] [address] [place] [address] Dr. Edwin Conklin MCV (RBC) [Entitic vol] 89.6 fL Normal 81.0-99.0 [facility] Comment on above: Performed By: #### C BC #### [facility] [address] [place] [address] Dr. Edwin Conklin MONO # 0.4 103/ul Normal 0.3-0.8 [facility] Comment on above: Performed By: #### C BC #### [facility] [address] [place] [address] Dr. Edwin Conklin Monocytes/100 WBC (Bld) 7.8 % Normal 1.7-12.0 [facility] Comment on above: Performed By: #### C BC #### [facility] [address] [place] [address] Dr. Edwin Conklin NEUT # 2.6 103/ul Normal 1.4-6.5 [facility] Comment on above: Performed By: #### C BC #### [facility] [address] [place] [address] Dr. Edwin Conklin Neutrophils/100 WBC (Bld) 50.1 % Normal 43.0-75.0 [facility] Comment on above: Performed By: #### C BC #### [facility] [address] [place] [address] Dr. Edwin Conklin Platelet mean volume (Bld) [Entitic vol] 9.1 fL Critically low 9.5-13.5 [facility] Comment on above: Performed By: #### C BC #### [facility] [address] [place] [address] Dr. Edwin Conklin PLT 293 103/ul Normal 150-450 [facility] Comment on above: Performed By: #### C BC #### [facility] [address] [place] [address] Dr. Edwin Conklin RBC 4.43 106/ul Normal 4.20-5.40 [facility] Comment on above: Performed By: #### C BC #### [facility] [address] [place] [address] Dr. Edwin Conklin WBC 5.1 103/ul Normal 4.0-11.0 [facility] Comment on above: Performed By: #### C BC #### [facility] [address] [place] [address] Dr. Edwin Conklin GLYCOHEMOGLOBIN A1Con 2021 ADA RECOMMENDATION SEE BELOW Normal [facility] Comment on above: Result Comment: ADA RECOMMENDED LIMIT 4.0 - 6.0 ADA THERAPEUTIC TARGET < 7.0 ACTION SUGGESTED > 7.0 Performed By: #### A 1C #### [facility] [address] [place] [address] Dr. Edwin Conklin Glucose [Mass/Vol] 103 mg/dL Normal [facility] Comment on above: Performed By: #### A 1C #### [facility] [address] [place] [address] Dr. Edwin Conklin HbA1c (Bld) [Mass fraction] 5.2 % Normal 4.5-6.2 [facility] Comment on above: Performed By: #### A 1C #### [facility] [address] [place] [address] Dr. Edwin Conklin TSHon 01-03-2022 TSH 3.882 uIU/mL Critically high 0.358-3.740 [facility] Comment on above: Performed By: #### T SH #### [facility] [address] [place] [address] Dr. Edwin Conklin Covid-19 PCR (CVDTB)on 07-10 SARS-CoV-2 (COVID-19) RNA YAHIR+probe Ql (Unsp spec) Not detected Normal NOT DETECTED [facility] Comment on above: Result Comment: This test is not yet approved or cleared by the [place] FDA. When there are no FDA-approved or cleared tests available, and other criteria are met, FDA can make tests available under an emergency access mechanism called an Emergency Use Authorization (EUA). The EUA for this test is supported by the [place] of Health and Human Service's (HHS's) declaration [...] SARS-CoV-2. Performed By: #### C VDTBH #### [facility] [address] [place] [address] Dr. Edwin Conklin CNOVon 10-01-2018 CNOV Office Visit (ENDOLN) ---- MAVIS DAWN ([id number]) 1990 F Date Time Provider Department 10/01/18 [...] suboptimal for the baby based on the hospice consultant assessment. She had normal TFTs in [...] or other neuroendocrine tumors. 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 Follow-up and Disposition History Recorded Encounter Status:Closed by MILLY BARROS MD on 10/01/18 Normal [facility] Free T4on 10-01-2018 Free T4 [Mass/Vol] 1.6 ng/dL Normal 0.9-1.7 [facility] Comment on above: Performed By: #### T SH, FT4 #### [facility] [address] [place], [place] [address] PROGRESSon 10-01-2018 PROGRESS HNO ID: [id number] Author: Milly Barros Service: ? 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 She is lactating. Prema reports that milk production is suboptimal for the baby based on the hospice consultant assessment. She had normal TFTs in [...] or other neuroendocrine tumors. Current Outpatient Medications: Jdpwnali-Ta-Cwp-Fe- FA ( VITAMIN) tab Take 1 tablet [...] with more than 50% of the total ncwr-jw-ogzt time of the visit in counseling / coordination of care. RTC in a year Milly Barros MD, PhD Normal [facility] TSHon 10-01-2018 TSH Qn 0.046 uU/mL Low 0.400-5.500 [facility] Comment on above: Result Comment: If t he patient is , TSH reference range varies by gestational period: First Trimester 0.100-2.500 uU/mL Second Trimester 0.200-3.000 uU/mL Third Trimester 0.300-3.000 uU/mL References: 1. Vicente L, Franchesca M, Kingsley EK, et al. Management of Thyroid Dysfunction during and : An Endocrine Society Clinical Practice Guideline. J Clin Endocrinol Metab, 2012:97:2483-6693. 2. Juan M DE LUNA. Overview of thyroid disease in . UpToDate. 2016. Accessed on December 25, 2015. Performed By: #### T SH, FT4 #### [facility] [address] [id number] Encounters Encounter Date Encounter Type Care Provider Facility Start: 07-05-2023 End: 07-05-2023 ambulatory ONEIL TAFOYA Not Available Start: 02-16-2023 End: 02-17-2023 ambulatory ATUL Duran [facility] Start: 04-27-2022 End: 04-27-[address] ONEIL TAFOYA Facility: Start: 08-28-[address] LARRY PUTNAM [facility] lity:H1 Start: 02-23-2022 End: 02-23-2022 ambulatory RUIZ Mee [facility]ALTARA Facility:[facility] Start: 01-20-[address] ONEIL TAFOYA Facility :[facility] Start: 01-03-2022 End: 01-04-[address] ONEIL TAFOYA Facility:[facility] Start: 07-28-2021 End: 07-28-[address] LARRY PUTNAM Facility:[facility] Payers Date Payer Category Payer Unknown [id number] 1990 Unknown [id number] 2.16.84 [id number] 1990 Unknown [id number] 2.16.84 [id number] 1990 Unknown [id number] 2.16.84 [id number] 1990 Unknown [id number] 2.16.84 [id number] 1990 Unknown [id number] 2.16.84 [id number] 1990 Unknown [id number] 2.16.84 [id number] 1990 Unknown [id number] 2.16.8 [id number] 1990 Unknown [id number] [id number] 1959 Self-pay 1959 Unknown [id number] Summary Purpose Family History No Family History Records FoundNo Family History Records FoundNo Family History Records FoundNo Family History Records Found Advance Directives No Advanced Directives Records FoundNo Advanced Directives Records FoundNo Advanced Directives Records FoundNo Advanced Directives Records Found Additional Source Comments INFORMATION SOURCE (unrecogn ized section and content) DATE CREATED AUTHOR 04/14/2019 [facility] DATE CREATED AUTHOR AUTHOR'S ORGANIZ ATION 02/18/2023 [facility] DATE CREATED AUTHOR AUTHOR'S ORGANIZ ATION 07/07/2023 [facility] FOR RECORDS PERTAINING TO PATIENTS WHO ARE [...] BE BASED ON THE PRIMARY CLINICAL RECORDS. [facility] [employer] provides no warranty or guarantee of the accuracy or completeness of information in this document.
[2023-08-08 10:39] LABS: Basophils Percent Auto 0.8 % (0.2-2.0); Eosinophils Absolute Auto 0.1 10^3/uL (0.0-0.7); Eosinophils Percent Auto 2.1 % (0.9-7.0); Hematocrit 40.7 % (36.0-48.0); Hemoglobin 13.2 g/dL (12.0-16.0); Immature Granulocytes Abs Auto 0.02 10^3/uL (0.00-0.03); Immature Granulocytes Pct Auto 0.4 % (0.0-0.5); Lymphocytes Absolute Auto 1.5 10^3/uL (1.2-3.8); Lymphocytes Percent Auto 30.9 % (20.5-60.0); Mean Corpuscular HGB Conc 32.4 g/dL (29.9-35.2); Mean Corpuscular Hemoglobin 29.3 pg (26.7-34.0); Mean Corpuscular Volume 90.4 fL (81.0-99.0); Mean Platelet Volume 9.3 fL (9.5-13.5); Monocytes Absolute Auto 0.4 10^3/uL (0.3-0.8); Monocytes Percent Auto 7.8 % (1.7-12.0); Neutrophils Absolute Auto 2.8 10^3/uL (1.4-6.5); Platelet Count 291 10^3/uL (150-450); Red Cell Distribution Width 12.8 % (11.0-15.0); White Blood Count 4.9 10^3/uL (4.0-11.0)
== END 2023-08-08 10:11 | disposition home or self-care (01) ==
LOC: LAB 10:11
PROVIDERS: Visit Provider Physician Assistant
DX: Z79.899 Other long term (current) drug therapy (principal)
CPT/HCPCS: 36415; 85025

== ENCOUNTER 2024-05-07 18:35 | Emergency (ER) | payer OTHER, SELFPAY ==
[2024-05-07 18:44] VITALS: BP 109/66; PULSE 125; TEMP 38.4; O2SAT 97; BMI 28.3
--- OUTSIDE RECORDS SUMMARY | 2024-05-07 18:53 | XMS_ITS | CCD ---
Author Organization [facility] Care Team Providers Care Seafood Process Worker Name Role Phone LOTTIE, DR RIGGS Attending [...] SANTOS Admitting Unavailable RUIZ LESTER Attending Unavailable KATRUIZ PACHECO Consulting Unavailable RUIZ LESTER Admitting Unavailable JERSEY, DR JUAREZ Primary Care Unavailable LOTTIE, DR RIGGS Attending Unavailable JERSEY, DR JUAREZ Primary Care Unavailable LOTTIE, DR RIGGS Admitting Unavailable JERSEY, DR JUAREZ Primary Care Unavailable MISC, DR SANTOS Admitting Unavailable MISC, DR SANTOS Attending Unavailable ATUL JACOB Primary Care Unavailable BELINDA CARD Referring Unavailable LOTTIE, ONEIL Attending Unavailable LOTTIE, ONEIL Attending Unavailable LINDSEY, PHILIPPE Attending Unavailable LINDSEY, PHILIPPE Attending Unavailable LINDSEY, PHILIPPE Attending Unavailable LINDSEY, PHILIPPE Attending Unavailable Allergies Allergy Classification Reported Allergen(s) Allergy Type Date of Onset Reaction(s) Facility (2 sources) Amoxicillin Drug Allergy 1990 [facility] (1 source) Penicillins Drug allergy (disorder) 12-04-2016 [facility] Problems Active Problems Problem Classification Problem [...] 02-17-2023 Ferritin [Mass/Vol] 32 ng/mL Normal 13-150 [facility] Comment on above: Performed By: #### L IPR, GLYHGB, FT3, FERI, FT4 #### [employer] [facility] [place] [address] Hay Rake Operator: Alcon Farfan MD #### CDP, TSH #### [facility] [address] [place] [address] Hay Rake Operator: Chace Leon MD Hemoglobin A1Con 02-17-2023 Glucose [Mass/Vol] 100 mg/dL Normal [facility] Comment on above: Result Comment: The ADA and AACC recommend providing the estimated average glucose result to permit better patient understanding of their HBA1c result. Performed By: #### L IPR, GLYHGB, FT3, FERI, FT4 #### [address] [address] Hay Rake Operator: Alcon Farfan MD #### CDP, TSH #### [address] [place], [place] [id number] [employer] Operator: Chace Leon MD HbA1c (Bld) [Mass fraction] 5.1 % Normal 4.0-6.0 [facility] Comment on above: Performed By: #### L IPR, GLYHGB, FT3, FERI, FT4 #### [address] [address] Hay Rake Operator: Alcon Farfan MD #### CDP, TSH #### [address] [place] [id number] Hay Rake Operator: Chace Leon MD T3, Freeon 9913 Free T3 [Mass/Vol] 2.90 pg/mL Normal 2.02-4.43 [facility] Comment on above: Performed By: #### L IPR, GLYHGB, FT3, FERI, FT4 #### [address] [address] Hay Rake Operator: Alcon Farfan MD #### CDP, TSH #### [address] [place] [id number] Hay Rake Operator: Chace Leon MD CBC with Diffon 02-16-2023 Abs. Basophil 0.05 k/uL Normal 0.00-0.20 [facility] Comment on above: Performed By: #### L IPR, GLYHGB, FT3, FERI, FT4 #### [address] [address] Hay Rake Operator: Alcon Farfan MD #### CDP, TSH #### [address] [place] [address] Hay Rake Operator: Chace Leon MD Abs.Imm.Granulocyte <0.03 Normal 0.00-0.30 [facility] Comment on above: Performed By: #### L IPR, GLYHGB, FT3, FERI, FT4 #### [place] [address] Hay Rake Operator: Alcon Farfan MD #### CDP, TSH #### [address] [place] [phone] Hay Rake Operator: Chace Leon MD Abs.Neutrophil (Seg) 3.53 k/uL Normal 1.50-8.10 [facility] Comment on above: Performed By: #### L IPR, GLYHGB, FT3, FERI, FT4 #### [place] [address] Hay Rake Operator: Alcon Farfan MD #### CDP, TSH #### [address] [place] [address] Hay Rake Operator: Chace Leon MD Basophils/100 WBC (Bld) 1 % Normal 0-2 [facility] Comment on above: Performed By: #### L IPR, GLYHGB, FT3, FERI, FT4 #### [place] [address] Hay Rake Operator: Alcon Farfan MD #### CDP, TSH #### [address] [place] [address] Hay Rake Operator: Chace Leon MD Eosinophils (Bld) [#/Vol] 0.14 10*3/uL Normal 0.00-0.4 4 [facility] Comment on above: Performed By: #### L IPR, GLYHGB, FT3, FERI, FT4 #### [place] [id number] Hay Rake Operator: Alcon Farfan MD #### CDP, TSH #### [address] [place], [place] [phone] Hay [employer] Operator: Chace Leon MD Eosinophils/100 WBC (Bld) 2 % Normal 1-4 [facility] Comment on above: Performed By: #### L IPR, GLYHGB, FT3, FERI, FT4 #### [address] [address] Hay R[employer] Operator: Alcon Farfan MD #### CDP, TSH #### [address] [place], [place] [phone] Hay Rake Operator: Chace Leon MD Erythrocyte distribution width (RBC) [Ratio] 12.9 % Normal 11.8-14.4 [facility] Comment on above: Performed By: #### L IPR, GLYHGB, FT3, FERI, FT4 #### [address] [address] Hay Rake Operator: Alcon Farfan MD #### CDP, TSH #### [address] [place] [phone] Hay Rake Operator: Chace Leon MD Hematocrit (Bld) [Volume fraction] 44.7 % Normal 36.3-47.1 [facility] Comment on above: Performed By: #### L IPR, GLYHGB, FT3, FERI, FT4 #### [address] [address] Hay Rake Operator: Alcon Farfan MD #### CDP, TSH #### [address] [place], [place] [phone] Hay [employer] Operator: Chace Leon MD Hemoglobin (Bld) [Mass/Vol] 14.6 g/dL Normal 11.9-15.1 [facility] Comment on above: Performed By: #### L IPR, GLYHGB, FT3, FERI, FT4 #### [address] [id number] Hay [employer] Operator: Alcon Farfan MD #### CDP, TSH #### [facility] [address] [place] [address] [place] [address] Hay Rake Operator: Chace Leon MD Immature granulocytes/100 WBC (Bld) 0 % Normal 0 [facility] Comment on above: Performed By: #### L IPR, GLYHGB, FT3, FERI, FT4 #### [place] [address]38[address] [place], [place] 168[address] Hay Rake Operator: Alcon Farfan MD #### CDP, TSH #### [address] [place] [phone] Hay Rake Operator: Chace Leon MD Lymphocytes (Bld) [#/Vol] 1.64 10*3/uL Normal 1.10-3.7 0 [facility] Comment on above: Performed By: #### L IPR, GLYHGB, FT3, FERI, FT4 #### [address] [id number] Hay Rake Operator: Alcon Farfan MD #### CDP, TSH #### [address] [place] [phone] Hay Rake Operator: Chace Leon MD Lymphocytes/100 WBC (Bld) 28 % Normal 24-43 [facility] Comment on above: Performed By: #### L IPR, GLYHGB, FT3, FERI, FT4 #### [address] [id number] Hay Rake Operator: Alcon Farfan MD #### CDP, TSH #### [address] [place] [address] Hay Rake Operator: Chace Leon MD MCH (RBC) [Entitic mass] 29.3 pg Normal 25.2-33.5 [facility] Comment on above: Performed By: #### L IPR, GLYHGB, FT3, FERI, FT4 #### [address] [address] Hay Rake Operator: Alcon Farfan MD #### CDP, TSH #### [address] [place] [phone] Hay Rake Operator: Chace Leon MD MCHC (RBC) [Mass/Vol] 32.7 g/dL Normal 28.4-34.8 [facility] Comment on above: Performed By: #### L IPR, GLYHGB, FT3, FERI, FT4 #### [address] [address] Hay Rake Operator: Alcon Farfan MD #### CDP, TSH #### [address] [place] [phone] Hay Rake Operator: Chace Leon MD MCV (RBC) [Entitic vol] 89.6 fL Normal 82.6-102.9 [facility] Comment on above: Performed By: #### L IPR, GLYHGB, FT3, FERI, FT4 #### [address] [address] Hay Rake Operator: Alcon Farfan MD #### CDP, TSH #### [address] [place] [phone] Hay Rake Operator: Chace Leon MD Monocytes (Bld) [#/Vol] 0.44 10*3/uL Normal 0.10-1.20 [facility] Comment on above: Performed By: #### L IPR, GLYHGB, FT3, FERI, FT4 #### [address] [address] Hay Rake Operator: Alcon Farfan MD #### CDP, TSH #### [address] [place] [phone] Hay Rake Operator: Chace Leon MD Monocytes/100 WBC (Bld) 8 % Normal 3-12 [facility] Comment on above: Performed By: #### L IPR, GLYHGB, FT3, FERI, FT4 #### [address] [phone] Hay Rake Operator: Alcon Farfan MD #### CDP, TSH #### [address] [place] [phone] Hay Rake Operator: Chace Leon MD Neutrophil (Seg) 61 % Normal 36-65 [facility] Comment on above: Performed By: #### L IPR, GLYHGB, FT3, FERI, FT4 #### [address] [phone] Hay Rake Operator: Alcon Farfan MD #### CDP, TSH #### [address] [place] [phone] Hay Rake Operator: Chace Leon MD NRBC Automated 0.0 per 100 WBC Normal 0.0 [facility] Comment on above: Performed By: #### L IPR, GLYHGB, FT3, FERI, FT4 #### [address] [id number] Hay Rake Operator: Alcon Farfan MD #### CDP, TSH #### [address] [place] [phone] Hay Rake Operator: Chace Leon MD Platelet mean volume (Bld) [Entitic vol] 9.9 fL Normal 8.1-13.5 [facility] Comment on above: Performed By: #### L IPR, GLYHGB, FT3, FERI, FT4 #### [address] [id number] Hay Rake Operator: Alcon Farfan MD #### CDP, TSH #### [address] [place] [address] Hay Rake Operator: Chace Leon MD Platelets (Bld) [#/Vol] 287 10*3/uL Normal 138-453 [facility] Comment on above: Performed By: #### L IPR, GLYHGB, FT3, FERI, FT4 #### [address] [address] Hay Rake Operator: Alcon Farfan MD #### CDP, TSH #### [address] [place], [place] [phone] Hay Rake Operator: Chace Leon MD RBC (Bld) [#/Vol] 4.99 10*6/uL Normal 3.95-5.11 [facility] Comment on above: Performed By: #### L IPR, GLYHGB, FT3, FERI, FT4 #### [address] [address] Hay Rake Operator: Alcon Farfan MD #### CDP, TSH #### [address] [place], [place] [phone] Hay Rake Operator: Chace Leon MD WBC (Bld) [#/Vol] 5.8 10*3/uL Normal 3.5-11.3 [facility] Comment on above: Performed By: #### L IPR, GLYHGB, FT3, FERI, FT4 #### [address] [address] Hay Rake Operator: Alcon Farfan MD #### CDP, TSH #### [address] [place], [place] [phone] Hay Rake Operator: Chace Leon MD Lipid Profileon 02-16-2023 Cholesterol [Mass/Vol] 149 mg/dL Normal <200 [facility] Comment on above: Result Comment: Cholesterol Guidelines: <200 Desirable 200-240 Borderline >240 Undesirable Performed By: #### L IPR, GLYHGB, FT3, FERI, FT4 #### [address] [place] [address] Hay Rake Operator: Alcon Farfan MD #### CDP, TSH #### [address] [place] [address] Hay Rake Operator: Chace Leon MD Cholesterol in HDL [Mass/Vol] 42 mg/dL Normal >40 [facility] Comment on above: Result Comment: HDL Guidelines: <40 Undesirable 40-59 Borderline >59 Desirable Performed By: #### L IPR, GLYHGB, FT3, FERI, FT4 #### [address] [address] Hay Rake Operator: Alcon Farfan MD #### CDP, TSH #### [address] [place] [address] Hay Rake Operator: Chace Leon MD Cholesterol in LDL [Mass/Vol] 80 mg/dL Normal 0-130 [facility] Comment on above: Result Comment: LDL Guidelines: <100 Desirable 100-129 Near to/above Desirable 130-159 Borderline >159 Undesirable Direct (measured) LDL and calculated LDL are not interchangeable tests. Performed By: #### L IPR, GLYHGB, FT3, FERI, FT4 #### [address] [address] Hay Rake Operator: Alcon Farfan MD #### CDP, TSH #### [address] [place] [address] Hay Rake Operator: Chace Leon MD Cholesterol.total/Choleste rol in HDL [Mass ratio] 3.5 {ratio} Normal <5 [facility] Comment on above: Performed By: #### L IPR, GLYHGB, FT3, FERI, FT4 #### [address] [address] Hay Rake Operator: Alcon Farfan MD #### CDP, TSH #### [address] [place] [address] Hay Rake Operator: Chace Leon MD Triglyceride [Mass/Vol] 134 mg/dL Normal <150 [facility] Comment on above: Result Comment: Triglyceride Guidelines: <150 Desirable 150-199 Borderline 200-499 High >499 Very high Based on AHA Guidelines for fasting triglyceride, April 2012. Performed By: #### L IPR, GLYHGB, FT3, FERI, FT4 #### [address] [id number] Hay Rake Operator: Alcon Farfan MD #### CDP, TSH #### [address] [place] [phone] Hay Rake Operator: Chace Leon MD Thyroid Stim. Horm.on 2022 Thyroid Stim. Horm. 3.89 uIU/mL Normal 0.30-5.00 [facility] Comment on above: Performed By: #### L IPR, GLYHGB, FT3, FERI, FT4 #### [address] [id number] Hay Rake Operator: Alcon Farfan MD #### CDP, TSH #### [address] [place] [phone] Hay Rake Operator: Chace Leon MD Thyroxine, Freeon 02-16-2023 Thyroxine, Free 1.0 ng/dL Normal 0.9-1.7 [facility] Comment on above: Performed By: #### L IPR, GLYHGB, FT3, FERI, FT4 #### [address] [id number] Hay Rake Operator: Alcon Farfan MD #### CDP, TSH #### [facility] [address] [place] [address] [place] [address] Hay Rake Operator: Chace Leon MD PAP ACOG PANEL 2: 30 to 65on 05-06-2022 . . Normal [facility] Comment on above: Result Comment: Perf ormed at: WB Performed By: #### 4 [id number] #### [facility] [address] [place] [address] [address] Edwin Conklin Age Gdln ACOG Testing 30-65 Normal [facility] Comment on above: Performed By: #### 4 [id number] #### [facility] [address] [place] [address] Dr. Edwin Conklin DIAGNOSIS: Comment Normal [facility] Comment on above: Result Comment: NEGA TIVE FOR INTRAEPITHELIAL LESION OR MALIGNANCY. Performed at: WB Performed By: #### 4 [id number] #### [facility] [address] [place] [address] [address] Edwin Conklin HPV Aptima Positive Abnormal Negative [facility] Comment on above: Result Comment: This nucleic acid amplification test detects fourteen high-risk HPV types (16,18,31,33,35,39,45,51,52,56,58,59,66,68) without differentiation. Performed at: =G Performed By: #### 4 [id number] #### [facility] [address] [place] [address] [address] Edwin Conklin HPV Genotype 16 Negative Normal Negative [facility] Comment on above: Result Comment: Perf ormed at: =G Performed By: #### 4 [id number] #### [facility] [address] [place] [address] Dr. Edwin Conklin HPV Genotype 18,45 Negative Normal Negative [facility] Comment on above: Result Comment: Perf ormed at: =G Performed By: #### 4 [id number] #### [facility] [address] [address] [address] Edwin Conklin Methodology: Comment Normal [facility] Comment on above: Result Comment: This liquid based ThinPrep(R) pap test was screened with the use of an image guided system. Performed at: WB Performed By: #### 4 [id number] #### [facility] [address] [place] [address] Dr. Edwin Conklin Note: Comment Normal [facility] Comment on above: Result Comment: The Pap smear is a screening test designed to aid in the detection of premalignant and malignant conditions of the uterine cervix. It is not a diagnostic procedure and should not be used as the sole means of detecting cervical cancer. Both false-positive and false-negative reports do occur. . Performed at: WB Performed By: #### 4 [id number] #### [facility] [address] [place] [address] Dr. Edwin Conklin Performed by: Comment Normal [facility] Comment on above: Result Comment: Karissa Alexander, [employer] Performed at: WB Performed By: #### 4 [id number] #### [facility] [address] [place] [address] Dr. Edwin Conklin Specimen adequacy: Comment Normal [facility] Comment on above: Result Comment: Sati sfactory for evaluation. Endocervical and/or squamous metaplastic cells (endocervical component) are present. Performed at: WB Performed By: #### 4 [id number] #### [facility] [address] [place] [address] Dr. Edwin Conklin CBC AUTO DIFFon 02-23-2022 BASO # 0.1 103/ul Normal 0.0-0.1 [facility] Comment on above: Performed By: #### C BC #### [facility] [address] [place] [address] Dr. Edwin Conklin Basophils/100 WBC (Bld) 0.3 % Normal 0.2-2.0 [facility] Comment on above: Performed By: #### C BC #### [facility] [address] [place] [address] Dr. Edwin Conklin EO # 0.1 103/ul Normal 0.0-0.7 [facility] Comment on above: Performed By: #### C BC #### [facility] [address] [place] [address] Dr. Edwin Conklin Eosinophils/100 WBC (Bld) 0.4 % Critically low 0.9-7. 0 [facility] Comment on above: Performed By: #### C BC #### [facility] [address] [place] [address] Dr. Edwin Conklin Erythrocyte distribution width (RBC) [Ratio] 13.2 % Normal 11.0-15.0 [facility] Comment on above: Performed By: #### C BC #### [facility] [address] [place] [address] Dr. Edwin Conklin Hematocrit (Bld) [Volume fraction] 45.2 % Normal 36.0-48.0 [facility] Comment on above: Performed By: #### C BC #### [facility] [address] [place] [address] Dr. Edwin Conklin Hemoglobin (Bld) [Mass/Vol] 14.8 g/dL Normal 12.0-16.0 [facility] Comment on above: Performed By: #### C BC #### [facility] [address] [place] [address] Dr. Edwin Conklin IG # 0.11 10e3/ul Critically high 0.00-0.03 [facility] Comment on above: Performed By: #### C BC #### [facility] [address] [place] [address] Dr. Edwin Conklin IG % 0.5 % Normal 0.0-0.5 [facility] Comment on above: Performed By: #### C BC #### [facility] [address] [place] [address] Dr. Edwin Conklin LYMPH # 1.3 103/ul Normal 1.2-3.8 [facility] Comment on above: Performed By: #### C BC #### [facility] [address] [place] [address] Dr. Edwin Conklin Lymphocytes/100 WBC (Bld) 6.0 % Critically low 20.5-6 0.0 [facility] Comment on above: Performed By: #### C BC #### [facility] [address] [place] [address] Dr. Edwin Conklin MANUAL DIFF REQ NO Normal [facility] Comment on above: Performed By: #### C BC #### [facility] [address] [place] [address] Dr. Edwin Conklin MCH (RBC) [Entitic mass] 28.9 pg Normal 26.7-34.0 [facility] Comment on above: Performed By: #### C BC #### [facility] [address] [address] [address] Edwin Conklin MCHC (RBC) [Mass/Vol] 32.7 g/dL Normal 29.9-35.2 [facility] Comment on above: Performed By: #### C BC #### [facility] [address] [address] [address] Edwin Conklin MCV (RBC) [Entitic vol] 88.3 fL Normal 81.0-99.0 [facility] Comment on above: Performed By: #### C BC #### [facility] [address] [address] [address] Edwin Conklin MONO # 1.1 103/ul Critically high 0.3-0.8 [facility] Comment on above: Performed By: #### C BC #### [facility] [address] [address] [address] Edwin Conklin Monocytes/100 WBC (Bld) 5.2 % Normal 1.7-12.0 [facility] Comment on above: Performed By: #### C BC #### [facility] [address] [address] [address] Edwin Conklin NEUT # 18.8 103/ul Critically high 1.4-6.5 [facility] Comment on above: Performed By: #### C BC #### [facility] [address] [address] [address] Edwin Conklin Neutrophils/100 WBC (Bld) 87.6 % Critically high 43.0- 75.0 [facility] Comment on above: Performed By: #### C BC #### [facility] [address] [address] [address] Edwin Conklin Platelet mean volume (Bld) [Entitic vol] 9.4 fL Critically low 9.5-13.5 [facility] Comment on above: Performed By: #### C BC #### [facility] [address] [address] [address] Edwin Conklin PLT 326 103/ul Normal 150-450 [facility] Comment on above: Performed By: #### C BC #### [facility] [address] [address] [address] Edwin Conklin RBC 5.12 106/ul Normal 4.20-5.40 [facility] Comment on above: Performed By: #### C BC #### [facility] [address] [address] [address] Edwin Conklin WBC 21.4 103/ul Critically high 4.0-11.0 [facility] Comment on above: Performed By: #### C BC #### [facility] [address] [address] [address] Edwin Conklin PREG HCG QUALon 02-23-2022 , QUAL Negative Normal NEGATIVE [facility] Comment on above: Performed By: #### P REG #### [facility] [address] [address] [address] Edwin Conklin PROF CHEM 8 (BAS METB)on Anion gap [Moles/Vol] 14.9 mmol/L Normal [facility] Comment on above: Performed By: #### B MP #### [facility] [address] [address] [address] Edwin Conklin Calcium [Mass/Vol] 8.5 mg/dL Normal 8.5-10.1 [facility] Comment on above: Performed By: #### B MP #### [facility] [address] [address] [address] Edwin Conklin Chloride [Moles/Vol] 102 mmol/L Normal 98-107 [facility] Comment on above: Performed By: #### B MP #### [facility] [address] [address] [address] Edwin Conklin CO2 [Moles/Vol] 23.8 mmol/L Normal 21.0-32.0 [facility] Comment on above: Performed By: #### B MP #### [facility] [address] [address] [address] Edwin Conklin Creatinine [Mass/Vol] 0.82 mg/dL Normal 0.55-1.02 [facility] Comment on above: Performed By: #### B MP #### [facility] [address] [address] [address] Edwin Conklin EGFR-AF CANADIAN >60 Normal >=60 [facility] Comment on above: Performed By: #### B MP #### [facility] [address] [address] [address] Edwin Conklin EGFR-NON AF CANADIAN >60 Normal >=60 [facility] Comment on above: Performed By: #### B MP #### [facility] [address] [address] [address] Edwin Conklin Glucose [Mass/Vol] 107 mg/dL Critically high 74-106 T [facility] Comment on above: Performed By: #### B MP #### [facility] [address] [address] [address] Edwin Conklin Potassium [Moles/Vol] 3.7 mmol/L Normal 3.5-5.1 [facility] Comment on above: Performed By: #### B MP #### [facility] [address] [address] [address] Edwin Conklin Sodium [Moles/Vol] 137 mmol/L Normal 136-145 [facility] Comment on above: Performed By: #### B MP #### [facility] [address] [address] [address] Edwin Conklin Urea nitrogen [Mass/Vol] 18.0 mg/dL Normal 7.0-18.0 [facility] Comment on above: Performed By: #### B MP #### [facility] [address] [address] [address] Edwin Conklin Urea nitrogen/Creatinine [Mass ratio] 22.0 mg/mg Normal [facility] Comment on above: Performed By: #### B MP #### [facility] [facility] [address] [address] [address] Edwin Conklin DHEA SERUMon 01-08-2022 Dehydroepiandrosterone (DHEA) 140 ng/dL Normal 31-701 [facility] [place] Comment on above: Result Comment: Age 1 [...] 701 Performed By: #### D BARBIE. #### [facility] [address] [place] [address] Dr. Edwin Conklin TESTOSTERONE, FREE,DIRECT, T OTALon 01-05-2022 Free Testosterone(Direct) 1.3 pg/mL Normal 0.0-4.2 [facility] [place] Comment on above: Result Comment: Perf ormed at: BN Performed By: #### T ESTFRD #### [facility] [address] [place] [address] Dr. Edwin Conklin Testosterone [Mass/Vol] 4 ng/dL Critically low 8-60 [facility] Comment on above: Result Comment: Perf ormed at: CB Performed By: #### T ESTFRD #### [facility] [address] [place] [address] Dr. Edwin Conklin DHEA-SULFATEon 01-04-2022 DHEA-Sulfate 134.0 ug/dL Normal 84.8-378.0 [facility] Comment on above: Performed By: #### C BC #### [facility] [address] [place] [address] Dr. Edwin Conklin FSHon 01-04-2022 FSH 4.0 mIU/mL Normal [facility] [place] Comment on above: Result Comment: Adul t Female: Follicular phase 3.5 - 12.5 Ovulation phase 4.7 - 21.5 Luteal phase 1.7 - 7.7 Postmenopausal 25.8 - 134.8 Performed By: #### L BCFSH #### [facility] [address] [place] [address] Dr. Edwin Conklin LUTEINIZING HORMONE (LH)on 0 01-04-2022 LH 3.8 mIU/mL Normal [facility] [place] Comment on above: Result Comment: Adul t Female: Follicular phase 2.4 - 12.6 Ovulation phase 14.0 - 95.6 Luteal phase 1.0 - 11.4 Postmenopausal 7.7 - 58.5 Performed By: #### C BC #### [facility] [address] [address] [address] Edwin Conklin CBC AUTO DIFFon 01-03-2022 BASO # 0.0 103/ul Normal 0.0-0.1 [facility] [place] Comment on above: Performed By: #### C BC #### [facility] [address] [place] [address] Dr. Edwin Conklin Basophils/100 WBC (Bld) 0.8 % Normal 0.2-2.0 [facility] Comment on above: Performed By: #### C BC #### [facility] [address] [place] [address] Dr. Edwin Conklin EO # 0.2 103/ul Normal 0.0-0.7 [facility] [place] Comment on above: Performed By: #### C BC #### [facility] [address] [place] [address] Dr. Edwin Conklin Eosinophils/100 WBC (Bld) 3.9 % Normal 0.9-7.0 [facility] [place] Comment on above: Performed By: #### C BC #### [facility] [address] [place] [address] Dr. Edwin Conklin Erythrocyte distribution width (RBC) [Ratio] 12.7 % Normal 11.0-15.0 [facility] [place] Comment on above: Performed By: #### C BC #### [facility] [address] [place] [address] Dr. Edwin Conklin Hematocrit (Bld) [Volume fraction] 39.7 % Normal 36.0-48.0 [facility] [place] Comment on above: Performed By: #### C BC #### [facility] [address] [place] [address] Dr. Edwin Conklin Hemoglobin (Bld) [Mass/Vol] 12.8 g/dL Normal 12.0-16.0 [facility] [place] Comment on above: Performed By: #### C BC #### [facility] [address] [place] [address] Dr. Edwin Conklin IG # 0.00 10e3/ul Normal 0.00-0.03 [facility] [place] Comment on above: Performed By: #### C BC #### [facility] [address] [place] [address] Dr. Edwin Conklin IG % 0.0 % Normal 0.0-0.5 [facility] [place] Comment on above: Performed By: #### C BC #### [facility] [address] [place] [address] Dr. Edwin Conklin LYMPH # 1.9 103/ul Normal 1.2-3.8 [facility] [place] Comment on above: Performed By: #### C BC #### [facility] [address] [place] [address] Dr. Edwin Conklin Lymphocytes/100 WBC (Bld) 37.4 % Normal 20.5-60.0 [facility] [place] Comment on above: Performed By: #### C BC #### [facility] [address] [place] [address] Dr. Edwin Conklin MANUAL DIFF REQ NO Normal [facility] Comment on above: Performed By: #### C BC #### [facility] [address] [place] [address] Dr. Edwin Conklin MCH (RBC) [Entitic mass] 28.9 pg Normal 26.7-34.0 [facility] [place] Comment on above: Performed By: #### C BC #### [facility] [address] [place] [address] Dr. Edwin Conklin MCHC (RBC) [Mass/Vol] 32.2 g/dL Normal 29.9-35.2 [facility] [place] Comment on above: Performed By: #### C BC #### [facility] [address] [place] [address] Dr. Edwin Conklin MCV (RBC) [Entitic vol] 89.6 fL Normal 81.0-99.0 [facility] Comment on above: Performed By: #### C BC #### [facility] [address] [place] [address] Dr. Edwin Conklin MONO # 0.4 103/ul Normal 0.3-0.8 [facility] [place] Comment on above: Performed By: #### C BC #### [facility] [address] [place] [address] Dr. Edwin Conklin Monocytes/100 WBC (Bld) 7.8 % Normal 1.7-12.0 [facility] Comment on above: Performed By: #### C BC #### [facility] [address] [place] [address] Dr. Edwin Conklin NEUT # 2.6 103/ul Normal 1.4-6.5 [facility] [place] Comment on above: Performed By: #### C BC #### [facility] [address] [place] [address] Dr. Edwin Conklin Neutrophils/100 WBC (Bld) 50.1 % Normal 43.0-75.0 [facility] [place] Comment on above: Performed By: #### C BC #### [facility] [address] [place] [address] Dr. Edwin Conklin Platelet mean volume (Bld) [Entitic vol] 9.1 fL Critically low 9.5-13.5 [facility] [place] Comment on above: Performed By: #### C BC #### [facility] [address] [place] [address] Dr. Edwin Conklin PLT 293 103/ul Normal 150-450 [facility] [place] Comment on above: Performed By: #### C BC #### [facility] [address] [place] [address] Dr. Edwin Conklin RBC 4.43 106/ul Normal 4.20-5.40 [facility] [place] Comment on above: Performed By: #### C BC #### [facility] [address] [place] [address] Dr. Edwin Conklin WBC 5.1 103/ul Normal 4.0-11.0 [facility] [place] Comment on above: Performed By: #### C BC #### [facility] [address] [place] [address] Dr. Edwin Conklin GLYCOHEMOGLOBIN A1Con 2021 ADA RECOMMENDATION SEE BELOW Normal [facility] Comment on above: Result Comment: ADA RECOMMENDED LIMIT 4.0 - 6.0 ADA THERAPEUTIC TARGET < 7.0 ACTION SUGGESTED > 7.0 Performed By: #### A 1C #### [facility] [address] [place] [address] Dr. Edwin Conklin Glucose [Mass/Vol] 103 mg/dL Normal [facility] Comment on above: Performed By: #### A 1C #### [facility] [address] [place] [address] Dr. Edwin Conklin HbA1c (Bld) [Mass fraction] 5.2 % Normal 4.5-6.2 [facility] [place] Comment on above: Performed By: #### A 1C #### [facility] [address] [place] [address] Dr. Edwin Conklin TSHon 01-03-2022 TSH 3.882 uIU/mL Critically high 0.358-3.740 [facility] Comment on above: Performed By: #### T SH #### [facility] [address] [place] [address] Dr. Edwin Conklin Covid-19 PCR ([facility])on 07-10 SARS-CoV-2 (COVID-19) RNA YAHIR+probe Ql (Unsp spec) Not detected Normal NOT DETECTED [facility] Comment on above: Result Comment: This test is not yet approved or cleared by the [place] FDA. When there are no FDA-approved or cleared tests available, and other criteria are met, FDA can make tests available under an emergency access mechanism called an Emergency Use Authorization (EUA). The EUA for this test is supported by the [place] Manager of Health and Human Service's (HHS's) declaration [...] SARS-CoV-2. Performed By: #### C VDTBH #### [facility] [address] [address] [address] Edwin Darden 10-01-2018 CNOV Office Visit ([facility]) ---- MAVIS DAWN ([id number]) 1990 F Date Time Provider Department 10/01/18 [...] suboptimal for the baby based on the community resource consultant assessment. She had normal TFTs in [...] or other neuroendocrine tumors. 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 Follow-up and Disposition History Recorded Encounter Status:Closed by MILLY BARROS MD on 10/01/[address] [facility] Free T4on 10-01-2018 Free T4 [Mass/Vol] 1.6 ng/dL Normal 0.9-1.7 [facility] Comment on above: Performed By: #### T SH, FT4 #### [facility] [address] [place] [address] PROGRESSon 10-01-2018 PROGRESS HNO ID: [id number] Author: Milly Barros Service: ? 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 She is lactating. Prema reports that milk production is suboptimal for the baby based on the community resource consultant assessment. She had normal TFTs in [...] or other neuroendocrine tumors. Current Outpatient Medications: Lakzgjwb-Nd-Grj-Fe- FA ( VITAMIN) tab Take 1 tablet [...] with more than 50% of the total wksj-ca-cgxj time of the visit in counseling / coordination of care. RTC in a year Milly Barros MD, PhD Normal [facility] TSHon 10-01-2018 TSH Qn 0.046 uU/mL Low 0.400-5.[address] [facility] Comment on above: Result Comment: If t he patient is , TSH reference range varies by gestational period: First Trimester 0.100-2.500 uU/mL Second Trimester 0.200-3.000 uU/mL Third Trimester 0.300-3.000 uU/mL References: 1. Vicente L, Franchesca M, Kingsley EK, et al. Management of Thyroid Dysfunction during and : An Endocrine Society Clinical Practice Guideline. J Clin Endocrinol Metab, 2012:97:7543-1201. 2. Juan M DE LUNA. Overview of thyroid disease in . UpToDate. 2016. Accessed on December 25, 2015. Performed By: #### T SH, FT4 #### [facility] [address] [address] Encounters Encounter Date Encounter Type Care Provider Facility Start: 12-15-2023 End: 12-15-2023 ambulatory PHILIPPE LINDSEY Not Available Start: 11-29-2023 End: 11-29-2023 ambulatory PHILIPPE LINDSEY Not Available Start: 11-23-2023 End: 11-23-2023 ambulatory PHILIPPE LINDSEY Not Available Start: 11-16-2023 End: 11-16-2023 ambulatory PHILIPPE LINDSEY Not Available Start: 10-04-2023 End: 10-04-2023 ambulatory ONEIL TAFOYA Not Available Start: 07-05-2023 End: 07-05-2023 ambulatory ONEIL TAFOYA Not Available Start: 02-16-2023 End: 02-17-2023 [facility] Start: 04-27-2022 End: 04-27-[address] ONEIL TAFOYA Facility:[facility] Start: 03-06-[address] LARRY PUTNAM Faci lity:[facility] Start: 02-23-2022 End: 02-23-2022 ambulatory RUIZ LESTER Facility:[facility] Start: 01-20-[address] ONEIL TAFOYA Facility :[facility] Start: 01-03-2022 End: 01-04-[address] ONEIL TAFOYA Facility:[facility] Start: 07-28-2021 End: 07-28-[address] LARRY PUTNAM Facility:[facility] Payers Date Payer Category Payer Unknown [id number] 1990 Unknown [id number] 2.16.84 [id number] 1990 Unknown [id number] 2.16.84 [id number] 1990 Unknown [id number] 2.16.84 [id number] 1990 Unknown [id number] 2.16.84 [id number] 1990 Unknown [id number] 2.16.84 [id number] 1990 Unknown [id number] 2.16.84 [id number] 1990 Unknown [id number] 2.16.8 [id number] 1990 Unknown [id number] 2.16.84 0.1.519844.3.579.2.9 1990 Unknown [id number] 2.16.84 [id number] 1990 Unknown [id number] 2.16.84 [id number] 1990 Unknown [id number] 2.16.84 [id number] 1990 Unknown [id number] 2.16.84 [id number] 1990 Unknown [id number] 2.16.840 .[id number] 1959 Self-pay 1959 Unknown [id number] Summary Purpose Family History No Family History Records FoundNo Family History Records FoundNo Family History Records FoundNo Family History Records Found Advance Directives No Advanced Directives Records FoundNo Advanced Directives Records FoundNo Advanced Directives Records FoundNo Advanced Directives Records Found Additional Source Comments INFORMATION SOURCE (unrecogn ized section and content) DATE CREATED AUTHOR 04/14/[address] [facility] DATE CREATED AUTHOR AUTHOR'S ORGANIZ ATION 05/06/2022 [facility] DATE CREATED AUTHOR AUTHOR'S ORGANIZ ATION 02/18/2023 [facility] DATE CREATED AUTHOR AUTHOR'S ORGANIZ ATION 12/19/2023 [facility] FOR RECORDS PERTAINING TO PATIENTS WHO ARE [...] BE BASED ON THE PRIMARY CLINICAL RECORDS. [employer] [facility]. provides no warranty or guarantee of the accuracy or completeness of information in this document.
[2024-05-07 19:10] LABS: Internal Control Within Normal Limits; Strep A Antigen Screen Negative
[2024-05-07 19:16] LABS: Influenza Virus A Antigen Negative; Influenza Virus B Antigen Negative; Internal Control Within Normal Limits; SARS-CoV-2 Ag NEGATIVE (NEGATIVE)
[2024-05-07 19:22] VITALS: BP 95/68; PULSE 121; TEMP 39.3; O2SAT 121
--- NOTE | 2024-05-07 19:54 | ED.URI1 ---
HPI - URI/Sore Throat General Chief Complaint: Upper Respiratory Infection Stated Complaint: COVID LIKE SYMPTOMS Time Seen by Provider: 05/07/24 19:36 Source: patient Limitations: no limitations History of Present Illness HPI Narrative: patient ill for past 3 days. Mild cough. Fever. Generalized weakness. No abdominal pain or urinary symptoms. States decreased urine output. Believes she is dehydrated. describes generalized weakness Related Data Allergies Allergy/AdvReac Type Severity Reaction Status Date / Time Penicillins Allergy Severe Rash Verified 05/07/24 18:44 Review of Systems ROS Status of ROS 10 or more systems reviewed and unremarkable except as noted in history and below PFSH PFSH Social History Little interest or pleasure in doing things: not at all Feeling down, depressed, or hopeless: not at all Exam Constitutional Vital Signs, click to edit/add: Last Vital Signs Temp 102.7 F H 05/07/24 19:22 Pulse 121 H 05/07/24 19:22 Resp 18 05/07/24 19:22 BP 95/68 05/07/24 19:22 Pulse Ox 121 H 05/07/24 19:22 O2 Del Method Room Air 05/07/24 18:44 Common normals: no apparent distress, average body habitus, oriented x3, no limitations, healthy appearing, alert and well nourished [facility] Common normals: normocephalic and head/scalp atraumatic Eye Common normals: PERRL, EOMs intact bilaterally and conjunctivae normal Respiratory Common normals: normal respiratory effort, no retractions, no use of accessory muscles and clear to auscultation bilaterally Cardio Common normals: regular rate, regular rhythm, S1 normal heart sound and S2 normal heart sound GI Common normals: Normal to inspection, nondistended, normoactive bowel sounds present, soft to palpation and non-tender Extremity Common normals: normal to inspection and full ROM Neuro Common normals: oriented x3, CN's II-XII intact bilaterally, moves all extremities and no focal motor deficits Psych Appearance: grossly normal Course Vital Signs Vital signs: Vital Signs Temperature 101.2 F H 05/07/24 18:44 Pulse Rate 125 H 05/07/24 18:44 Respiratory Rate 20 05/07/24 18:44 Blood Pressure 109/66 05/07/24 18:44 Pulse Oximetry 97 10/29/24 18:44 Oxygen Delivery Method Room Air 10/29/24 18:44 Temperature 102.7 F H 05/07/24 19:22 Pulse Rate 121 H 05/07/24 19:22 Respiratory Rate 18 05/07/24 19:22 Blood Pressure 95/68 05/07/24 19:22 Pulse Oximetry 121 H 05/07/24 19:22 Oxygen Delivery Method Room Air 05/07/24 18:44 MDM - URI/Sore Throat MDM Narrative Medical decision making narrative: patient presents with mild cough, no energy and fever. Decreased intake. No dysuria or hematuria. Workup included neg cxray and swabs for COVID19 and influenza neg. UA appears infected. Patient advised of the plan to treat as UTI with levaquin. She did defervesce after receiving Motrin here. Discharged feeling better after IV hydration Lab Data Labs: Lab Results 05/07/24 05/07/24 05/07/24 Range/Units 18:55 19:40 20:20 WBC 6.5 (4.0-11.0) 10^3/uL RBC 4.48 (4.20-5.40) 10^6/uL Hgb 13.4 (12.0-16.0) g/dL Hct 38.9 (36.0-48.0) % MCV 86.8 (81.0-99.0) fL MCH 29.9 (26.7-34.0) pg MCHC 34.4 (29.9-35.2) g/dL RDW 12.7 (11.0-15.0) % Plt Count 266 (150-450) 10^3/uL MPV 9.5 (9.5-13.5) fL Neut % (Auto) 76.2 H (43.0-75.0) % Lymph % (Auto) 12.7 L (20.5-60.0) % [place] % (Auto) 9.2 (1.7-12.0) % Eos % (Auto) 1.2 (0.9-7.0) % Baso % (Auto) 0.5 (0.2-2.0) % Neut # (Auto) 5.0 (1.4-6.5) 10^3/uL Lymph # (Auto) 0.8 L (1.2-3.8) 10^3/uL [place] # (Auto) 0.6 (0.3-0.8) 10^3/uL Eos # (Auto) 0.1 (0.0-0.7) 10^3/uL Baso # (Auto) 0.0 (0.0-0.1) 10^3/uL Abs Immat Gran (auto) 0.01 (0.00-0.03) 10^3/uL Imm/Tot Granulo (auto) 0.2 (0.0-0.5) % Sodium 139 (136-145) mmol/L Potassium 3.4 L (3.5-5.1) mmol/L Chloride 105 (98-107) mmol/L Carbon Dioxide 24.6 (21.0-32.0) mmol/L Anion Gap 12.8 BUN 10.0 (7.0-18.0) mg/dL Creatinine 0.89 (0.55-1.02) mg/dL Est GFR ( Amer) >60 (>=60 mL/min/1.73m^2) Est GFR (Non-Af Amer) >60 (>=60 mL/min/1.73m^2) BUN/Creatinine Ratio 11.2 Glucose 107 H (74-106) mg/dL Lactate 0.9 (0.4-2.0) mmol/L Calcium 8.3 L (8.5-10.1) mg/dL Total Bilirubin 0.3 (0.2-1.0) mg/dL AST 10 L (15-37) U/L ALT 12 L (14-59) U/L Alkaline Phosphatase 52 (46-116) U/L Total Protein 6.9 (6.4-8.2) g/dL Albumin 3.4 (3.4-5.0) g/dL Globulin 3.5 g/dL Albumin/Globulin Ratio 1.0 Urine Color Lt. yellow (YELLOW) Urine Clarity Clear (CLEAR) Urine pH 7.0 (5.0-9.0) Ur Specific [place] 1.015 (1.005-1.025) Urine Protein Negative (NEG/TRACE) mg/dL Urine Glucose (UA) Negative (NEGATIVE) mg/dL Urine Ketones Negative (NEGATIVE) mg/dL Urine Occult Blood Trace-i (NEGATIVE) Urine Nitrite Negative (NEGATIVE) Urine Bilirubin Negative (NEGATIVE) Urine Urobilinogen 1.0 (0.2-1.0) EU/dL Ur Leukocyte Esterase Small A (NEGATIVE) Urine RBC 2-5 A (0-2) #/HPF Urine WBC 10-20 A (NONE SEEN) #/HPF Ur Squamous Epith Cells Moderate A (NONE/RARE) #/LPF Urine Crystals Seen A (None Seen) #/HPF Amorphous Sediment Moderate Urine Bacteria Large A (NONE SEEN) #/HPF Urine Casts None seen (NONE SEEN) #/LPF Urine Mucus None seen (NONE SEEN) Ur Culture Indicated? Yes Urine HCG, Qual Negative (NEGATIVE) Influenza Type A Ag Negative Influenza Type B Ag Negative SARS-CoV-2 Ag (CV2AG) Negative (NEGATIVE) Streptococcus Screen Negative Discharge Plan Discharge Chief Complaint: Upper Respiratory Infection Clinical Impression: Upper respiratory infection, UTI (urinary tract infection) Patient Disposition: Home, Self-Care Print Language: Lao Instructions: Urinary Tract Infection in Women (ED), Upper Respiratory Infection (ED) Additional Instructions: drink plenty of fluids. follow up with your doctor in a couple of days for recheck Referrals: Physician,Non-Staff, MD [Primary Care Provider] - 1 week
--- NOTE | 2024-05-07 19:56 | XR_ITS ---
The [address] [address] Patient Name: MAME UNDERWOOD MRN: [id number] date: 1990 Sex: F Assigned Patient Location: ER Current Patient Location: ER Accession/Order Number: [id number] Exam Date: 05/07/2024 20:20 Report Date: 05/07/2024 22:02 At the request of: ALVARADO CRAMER Procedure: XR chest 1V EXAM: XR chest 1V HISTORY: fever COMPARISON: None. TECHNIQUE: Single frontal view of the chest FINDINGS: Devices: None. Lungs / Pleura: Lungs symmetrically and adequately inflated. No focal consolidation. No pneumothorax or pleural effusion. Heart and mediastinum: Unremarkable cardiomediastinal contours. Bones/soft tissues: No acute osseous findings. Stippled radiopacities overlie the chest, compatible with external object. IMPRESSIONS: No acute cardiopulmonary findings. Electronically authenticated by: RAPHAEL RICHARDS Date: 05/07/2024 22:02
[2024-05-07] MEDS: 0.9 % SODIUM CHLORIDE 1,000 ML 999 ML IV (20:08)
[2024-05-07] MEDS: IBUPROFEN 600 MG TABLET PO (20:08)
[2024-05-07 20:28] LABS: Basophils Percent Auto 0.5 % (0.2-2.0); Eosinophils Absolute Auto 0.1 10^3/uL (0.0-0.7); Eosinophils Percent Auto 1.2 % (0.9-7.0); Hematocrit 38.9 % (36.0-48.0); Hemoglobin 13.4 g/dL (12.0-16.0); Immature Granulocytes Abs Auto 0.01 10^3/uL (0.00-0.03); Immature Granulocytes Pct Auto 0.2 % (0.0-0.5); Lymphocytes Absolute Auto 0.8 10^3/uL (1.2-3.8); Lymphocytes Percent Auto 12.7 % (20.5-60.0); Mean Corpuscular HGB Conc 34.4 g/dL (29.9-35.2); Mean Corpuscular Hemoglobin 29.9 pg (26.7-34.0); Mean Corpuscular Volume 86.8 fL (81.0-99.0); Mean Platelet Volume 9.5 fL (9.5-13.5); Monocytes Absolute Auto 0.6 10^3/uL (0.3-0.8); Monocytes Percent Auto 9.2 % (1.7-12.0); Neutrophils Percent Auto 76.2 % (43.0-75.0); Platelet Count 266 10^3/uL (150-450); Red Blood Count 4.48 10^6/uL (4.20-5.40); Red Cell Distribution Width 12.7 % (11.0-15.0); White Blood Count 6.5 10^3/uL (4.0-11.0)
[2024-05-07 20:45] LABS: Bilirubin Urine NEGATIVE (NEGATIVE); Blood Urine TRACE-I (NEGATIVE); Clarity Urine CLEAR (CLEAR); Color Urine LT. YELLOW (YELLOW); Glucose Urine UA NEGATIVE (NEGATIVE); HCG Qualitative Urine* NEGATIVE (NEGATIVE); Internal Control Within Normal Limits; Ketones Urine NEGATIVE (NEGATIVE); Leukocyte Esterase Urine SMALL (NEGATIVE); Nitrite Urine NEGATIVE (NEGATIVE); Protein Urine NEGATIVE (NEG/TRACE); Specific Gravity Urine 1.015 (1.005-1.025)
[2024-05-07 20:45] LABS: Alanine Aminotransferase 12 U/L (14-59); Albumin Level 3.4 g/dL (3.4-5.0); Alkaline Phosphatase 52 U/L (46-116); Anion Gap 12.8; Aspartate Amino Transferase 10 U/L (15-37); BUN Creatinine Ratio 11.2; Bilirubin Total 0.3 mg/dL (0.2-1.0); Calcium 8.3 mg/dL (8.5-10.1); Carbon Dioxide 24.6 mmol/L (21.0-32.0); Chloride 105 mmol/L (98-107); Estimated GFR (African America >60 (>=60 mL/min/1.73m^2); Estimated GFR (Non-African Ame >60 (>=60 mL/min/1.73m^2); Globulin 3.5 g/dL; Glucose 107 mg/dL (74-106); Potassium 3.4 mmol/L (3.5-5.1); Sodium 139 mmol/L (136-145); Total Protein 6.9 g/dL (6.4-8.2)
[2024-05-07 20:46] LABS: Urine Microscopic Indicated YES
[2024-05-07 20:47] LABS: Lactate/Lactic Acid 0.9 mmol/L (0.4-2.0)
[2024-05-07 21:00] LABS: Bacteria Urine LARGE #/HPF (NONE SEEN); Mucus Urine NONE SEEN (NONE SEEN); Squamous Epithelial Cell Urine MODERATE #/LPF (NONE/RARE)
[2024-05-07 21:01] LABS: Amorphous Sediment Urine MODERATE; Cast Seen? NONE SEEN #/LPF (NONE SEEN); Crystals Seen? Seen #/HPF (None Seen); Urine Culture Indicated YES
[2024-05-07] MEDS: IBUPROFEN 400 MG TABLET 800 MG PO (23:07)
[2024-05-07] MEDS: LEVOFLOXACIN 500 MG TABLET PO (23:07)
== END 2024-05-07 23:08 | disposition home or self-care (01) ==
PROVIDERS: Emergency Medicine Emergency Medical Services; Emergency Provider Internal Medicine
DX: N39.0 Urinary tract infection, site not specified (principal); J06.9 Acute upper respiratory infection, unspecified; Z20.822 Contact with and (suspected) exposure to COVID-19
CPT/HCPCS: 36415; 71045; 80053; 81001; 83605; 84703; 85025; 87070; 87086; 87804; 87811; 87880; 99285